=== PATIENT | female | born 1965 | race African-American/Black ===

== ENCOUNTER 2016-05-10 17:40 | Emergency (ER) | payer SELFPAY ==
--- NOTE | 2016-05-10 18:21 | ER Document Report ---
ED Medical Screen (RME) - General Stated Complaint: POSSIBLE HEART PALPITATIONS Time seen by provider: 18:18 Mode of Arrival: Ambulatory Information source: Patient Notes: 51-year-old female presents to ED for possible palpitations. She states she was having chest tightness and pain for greater than 3 weeks worsening today. States it is causing shortness of breath dizziness and hot flashes. She has had a uterine ablation she is also on tamoxifen for breast cancer. Increased fatigue for the last 4 days she's been sleeping more. I have greeted and performed a rapid initial assessment of this patient. A comprehensive ED assessment and evaluation of the patient, analysis of test results and completion of medical decision making process will be conducted by an additional ED providers. TRAVEL OUTSIDE OF THE [place] IN LAST 30 DAYS: No - Related Data Allergies/Adverse Reactions: No Known Allergies Allergy (Verified 11/23/15 15:42) Past Medical History - Past Medical History Cardiac Medical History: Reports: Hx Hypertension Malignancy Medical History: Reports: Hx Breast Cancer - 2 years ago Past Surgical History: Reports: Hx Breast Surgery - LT lumpectomy, Hx Gynecologic Surgery - ablasion - Immunizations Hx Diphtheria, Pertussis, Tetanus Vaccination: Yes
[2016-05-10] MEDS ORDERED: ASPIRIN 81 MG TABLET, CHEWABLE PO ONE (18:22)
[2016-05-10 19:16] LABS: ABSOLUTE BASOPHILS # (AUTO) 0.1 10^3/uL (0.0-0.2); ABSOLUTE EOSINOPHILS # (AUTO) 0.4 10^3/uL (0.0-0.6); ABSOLUTE LYMPHOCYTES (AUTO) 2.3 10^3/uL (0.5-4.7); ABSOLUTE MONOCYTES (AUTO) 0.3 10^3/uL (0.1-1.4); ABSOLUTE NEUT (AUTO) 4.3 10^3/uL (1.7-8.2); BASOPHILS % (AUTO) 0.7 % (0-2); EOSINOPHILS % (AUTO) 5.2 % (0-6); HEMATOCRIT 40.3 % (36.0-47.0); HEMOGLOBIN 13.6 g/dL (12.0-15.5); HGB HCT DIFFERENCE 0.5; LYMPHOCYTES % (AUTO) 31.6 % (13-45); MEAN CORPUSCULAR HEMOGLOBIN 28.6 pg (27.0-33.4); MEAN CORPUSCULAR HGB CONC 33.8 g/dL (32.0-36.0); MEAN CORPUSCULAR VOLUME 85 fl (80-97); MONOCYTES % (AUTO) 4.7 % (3-13); RED BLOOD COUNT 4.77 10^6/uL (3.72-5.28); SEGMENTED NEUTROPHILS % (AUTO) 57.8 % (42-78); WHITE BLOOD COUNT 7.4 10^3/uL (4.0-10.5)
[2016-05-10 19:23] LABS: PARTIAL THROMBOPLASTIN TIME 28.2 SEC (23.5-35.8); PROTHROMBIN TIME 13.3 SEC (11.4-15.4)
[2016-05-10 19:50] LABS: CREATINE KINASE MB 0.83 ng/mL (<4.55)
[2016-05-10 19:51] LABS: TROPONIN I < 0.012 ng/mL
[2016-05-10 19:56] LABS: ALANINE AMINOTRANSFERASE 37 U/L (9-52); ALBUMIN 4.7 g/dL (3.5-5.0); ALKALINE PHOSPHATASE 68 U/L (38-126); ANION GAP 10 (5-19); ASPARTATE AMINO TRANSFERASE 28 U/L (14-36); BILIRUBIN,TOTAL 0.8 mg/dL (0.2-1.3); BLOOD UREA NITROGEN 12 mg/dL (7-20); CALCIUM 10.5 mg/dL (8.4-10.2); CARBON DIOXIDE 26 mmol/L (22-30); CHLORIDE 106 mmol/L (98-107); CREATINE KINASE 181 U/L (30-135); CREATININE RESULT 1.06 mg/dL (0.52-1.25); GLUCOSE 75 mg/dL (75-110); POTASSIUM 4.4 mmol/L (3.6-5.0); SODIUM 142.4 mmol/L (137-145); TOTAL PROTEIN 8.2 g/dL (6.3-8.2)
--- NOTE | 2016-05-10 23:27 | ER Document Report ---
ED General - General Chief Complaint: Palpitations Stated Complaint: POSSIBLE HEART PALPITATIONS Mode of Arrival: Ambulatory Notes: Patient is a 51-year-old female with past history of breast cancer in remission as well as hypertension who presents intermittent palpitations and hot flashes for the last 2-3 weeks. She also notes that she has had an intermittent, sharp , stabbing pain in her left chest. Nothing improves or worsens her symptoms. She has not yet seen her primary care doctor regarding today's concerns. She denies any history of DVT or pulmonary embolus. Denies any associated radiation of the pain, shortness of breath, nausea, vomiting or hemoptysis. Does not use estrogen. No recent medication changes. TRAVEL OUTSIDE OF THE [place] IN LAST 30 DAYS: No - Related Data Allergies/Adverse Reactions: No Known Allergies Allergy (Verified 11/23/15 15:42) Past Medical History - General Information source: Patient - Social History Smoking Status: Former Smoker Chew tobacco use (# tins/day): No Frequency of alcohol use: None Drug Abuse: None Lives with: Alone Family History: Reviewed & Not Pertinent. denies: CAD, Hypertension Patient has suicidal ideation: No - Past Medical History Cardiac Medical History: Reports: Hx Hypertension Renal/ Medical History: Denies: Hx Peritoneal Dialysis Malignancy Medical History: Reports: Hx Breast Cancer - 2 years ago Past Surgical History: Reports: Hx Breast Surgery - LT lumpectomy, Hx Gynecologic Surgery - ablasion - Immunizations Hx Diphtheria, Pertussis, Tetanus Vaccination: Yes Review of Systems - Review of Systems Notes: Constitutional: Negative for fever. HENT: Negative for sore throat. Eyes: Negative for visual changes. Cardiovascular: Positive for chest pain and palpitations Respiratory: Negative for shortness of breath. Gastrointestinal: Negative for abdominal pain, vomiting or diarrhea. Genitourinary: Negative for dysuria. Musculoskeletal: Negative for back pain. Skin: Negative for rash. Neurological: Negative for headaches, weakness or numbness. 10 point ROS negative except as marked above and in HPI. Physical Exam - Vital signs Vitals: Temp Pulse Resp BP Pulse Ox 97.8 F 69 18 150/102 H 100 05/10/16 17:54 05/10/16 17:54 05/10/16 17:54 05/10/16 17:54 05/10/16 17:54 Interpretation: Hypertensive Notes: PHYSICAL EXAMINATION: GENERAL: Well-appearing, well-nourished and in no acute distress. HEAD: Atraumatic, normocephalic. EYES: Pupils equal round and reactive to light, extraocular movements intact, sclera anicteric, conjunctiva are normal. ENT: nares patent, oropharynx clear without exudates. Moist mucous membranes. NECK: Normal range of motion, supple without lymphadenopathy LUNGS: Breath sounds clear to auscultation bilaterally and equal. No wheezes rales or rhonchi. HEART: Regular rate and rhythm without murmurs ABDOMEN: Soft, nontender, normoactive bowel sounds. No guarding, no rebound. No masses appreciated. EXTREMITIES: Normal range of motion, no pitting or edema. No cyanosis. NEUROLOGICAL: No focal neurological deficits. Moves all extremities spontaneously and on command. PSYCH: Normal mood, normal affect. SKIN: Warm, Dry, normal turgor, no rashes or lesions noted. Course - Re-evaluation Re-evalutation: 05/10/16 23:26 Patient presents with palpitations but is in no acute distress. Vitals within normal limits at time of arrival. EKG unremarkable with a normal sinus rhythm. Laboratories are unremarkable. Patient denies any chest pain at this time but did complain earlier. Patient has had 2 troponins which both are negative. She denies shortness of breath, or vomiting. At this time based on exam and history do not suspect a new onset arrhythmia, ACS, acute pulmonary embolus, aortic dissection. Patient encouraged to follow-up with their primary care physician as well as cardiology and a referral has been provided. At this time will discharge with return precautions and follow-up recommendations. Verbal discharge instructions given a the bedside and opportunity for questions given. Medication warnings reviewed. Patient is in agreement with this plan and has verbalized understanding of return precautions and the need for primary care follow-up in the next 24-72 hours. - Vital Signs Vital signs: Temp Pulse Resp BP Pulse Ox 98.7 F 69 19 157/110 H 95 05/10/16 23:49 05/10/16 17:54 05/10/16 23:36 05/10/16 23:36 05/10/16 23:36 - Laboratory Result Diagrams: 05/10/16 19:05 05/10/16 19:05 Laboratory results interpreted by me: 05/10/16 19:05 Est GFR (Non-Af Amer) 55 L Calcium 10.5 H Creatine Kinase 181 H - Diagnostic Test Radiology reviewed: Image reviewed, Reports reviewed Radiology results interpreted by me: 05/10/16 23:40 Chest x-ray: No acute infiltrate or pneumothorax - EKG Interpretation by Me Additional EKG results interpreted by me: 05/10/16 23:41 Normal sinus rhythm. No ST elevations or depressions. QTC is 462. Rate is 65 Discharge - Discharge Clinical Impression: Palpitations Chest pain Qualifiers: Chest pain type: unspecified Qualified Code(s): R07.9 - Chest pain, unspecified Condition: Good Disposition: HOME, SELF-CARE Additional Instructions: Please follow-up closely with cardiology regarding your palpitations. Return if you pass out, have shortness of breath, persistent vomiting, develop significant chest pain, or have any other symptoms that are concerning to you. You were seen today for chest pain. The exact cause of your pain is unclear. However, based on your cardiac enzyme testing, chest x-ray, and EKG it does not appear that it is from an immediately life-threatening cause at this time. Although your testing here is normal is critical that you follow-up with your primary care physician for continued evaluation of this chest pain and possible stress testing. I recommended you see your physician within the next 24-48 hours to be evaluated for consideration of a stress test. Please return to emergency department immediately if you have worsening of your chest pain, shortness of breath, vomiting, become unable to exert yourself due to pain or difficulty breathing, you pass out, or have any pain that radiates into your arms, jaw, or back. Please also return if you have any additional symptoms that are concerning to you. Forms: Return to Work Referrals: JUAN HOUSER MD [ACTIVE STAFF] - Follow up in 3-5 days
[2016-05-10 23:39] VITALS: BP 157/110
--- NOTE | 2016-05-11 11:15 | EKG REPORT ---
SEVERITY:- ABNORMAL ECG - SINUS RHYTHM LEFT VENTRICULAR HYPERTROPHY : Confirmed by: Annamaria Salinas 11-May-2016 11:14:31
== END 2016-05-10 23:49 | disposition home or self-care (01) ==
LOC: ER 17:40
DX: R00.2 Palpitations (principal); I10 Essential (primary) hypertension; R07.9 Chest pain, unspecified; Z87.891 Personal history of nicotine dependence; Z85.3 Personal history of malignant neoplasm of breast
CPT/HCPCS: 36415; 71020; 80053; 82550; 82553; 83735; 83880; 84443; 84484; 85025; 85610; 85730; 93005; 93010; 99285

== ENCOUNTER 2017-01-29 15:40 | Emergency (ER) | payer SELFPAY ==
--- NOTE | 2017-01-29 18:33 | ER Document Report ---
ED Medical Screen (RME) - General Chief Complaint: Nausea/Vomiting/Diarrhea Stated Complaint: STOMACH ACHES Time Seen by Provider: 01/29/17 18:32 Notes: Patient has had several weeks of generalized weakness chest pain TRAVEL OUTSIDE OF THE [place] IN LAST 30 DAYS: No - Related Data Allergies/Adverse Reactions: No Known Allergies Allergy (Verified 01/29/17 15:41) Home Medications: Current Home Medications Amlodipine Besylate [Norvasc 10 mg Tablet] 1 tab PO DAILY 01/29/17 [History] Tamoxifen Citrate 20 mg PO DAILY 01/29/17 [History] Past Medical History - Social History Frequency of alcohol use: None Drug Abuse: None - Past Medical History Cardiac Medical History: Reports: Hx Hypertension Renal/ Medical History: Denies: Hx Peritoneal Dialysis Malignancy Medical History: Reports: Hx Breast Cancer - 2 years ago Past Surgical History: Reports: Hx Breast Surgery - LT lumpectomy, Hx Gynecologic Surgery - ablasion - Immunizations Hx Diphtheria, Pertussis, Tetanus Vaccination: Yes Physical Exam - Vital signs Vitals: Temp Pulse Resp BP Pulse Ox 98.0 F 62 18 158/111 H 99 01/29/17 16:04 01/29/17 16:04 01/29/17 16:04 01/29/17 16:04 01/29/17 16:04 Course - Vital Signs Vital signs: Temp Pulse Resp BP Pulse Ox 98.0 F 62 18 158/111 H 99 01/29/17 16:04 01/29/17 16:04 01/29/17 18:25 01/29/17 16:04 01/29/17 16:04
[2017-01-29 19:39] LABS: ABSOLUTE BASOPHILS # (AUTO) 0.1 10^3/uL (0.0-0.2); ABSOLUTE EOSINOPHILS # (AUTO) 0.4 10^3/uL (0.0-0.6); ABSOLUTE LYMPHOCYTES (AUTO) 2.1 10^3/uL (0.5-4.7); ABSOLUTE MONOCYTES (AUTO) 0.4 10^3/uL (0.1-1.4); ABSOLUTE NEUT (AUTO) 2.4 10^3/uL (1.7-8.2); BASOPHILS % (AUTO) 1.5 % (0-2); HEMATOCRIT 40.8 % (36.0-47.0); HEMOGLOBIN 13.9 g/dL (12.0-15.5); LYMPHOCYTES % (AUTO) 38.9 % (13-45); MEAN CORPUSCULAR HEMOGLOBIN 28.7 pg (27.0-33.4); MEAN CORPUSCULAR HGB CONC 33.9 g/dL (32.0-36.0); MEAN CORPUSCULAR VOLUME 85 fl (80-97); MONOCYTES % (AUTO) 8.1 % (3-13); PLATELET COUNT 213 10^3/uL (150-450); RED BLOOD COUNT 4.82 10^6/uL (3.72-5.28); RED CELL DISTRIBUTION WIDTH 14.3 % (11.5-14.0); SEGMENTED NEUTROPHILS % (AUTO) 43.5 % (42-78); TOTAL CELLS COUNTED % (AUTO) 100 %; WHITE BLOOD COUNT 5.5 10^3/uL (4.0-10.5)
[2017-01-29 20:08] LABS: ALANINE AMINOTRANSFERASE 33 U/L (9-52); ALBUMIN 4.3 g/dL (3.5-5.0); ALKALINE PHOSPHATASE 66 U/L (38-126); ANION GAP 12 (5-19); ASPARTATE AMINO TRANSFERASE 31 U/L (14-36); BILIRUBIN,DIRECT 0.3 mg/dL (0.0-0.4); BILIRUBIN,TOTAL 0.5 mg/dL (0.2-1.3); BLOOD UREA NITROGEN 11 mg/dL (7-20); CALCIUM 9.7 mg/dL (8.4-10.2); CARBON DIOXIDE 25 mmol/L (22-30); CHLORIDE 108 mmol/L (98-107); GLUCOSE 78 mg/dL (75-110); POTASSIUM 4.5 mmol/L (3.6-5.0); SODIUM 144.5 mmol/L (137-145); TOTAL PROTEIN 7.2 g/dL (6.3-8.2)
[2017-01-29 20:30] LABS: APPEARANCE,URINE SLIGHTLY-CLOUDY; BILIRUBIN,URINE NEGATIVE (NEGATIVE); COLOR,URINE YELLOW; GLUCOSE, URINE NEGATIVE (NEGATIVE); KETONES,URINE NEGATIVE (NEGATIVE); LEUKOCYTE ESTERASE,URINE NEGATIVE (NEGATIVE); NITRITE,URINE NEGATIVE (NEGATIVE); PROTEIN,URINE 30 mg/dL (NEGATIVE); URINE SPECIFIC GRAVITY 1.013; UROBILINOGEN,URINE NEGATIVE mg/dL (<2.0)
--- NOTE | 2017-01-29 20:38 | EKG REPORT ---
SEVERITY:- BORDERLINE ECG - SINUS RHYTHM LVH BY VOLTAGE : Confirmed by: Annamaria Salinas 29-Jan-2017 20:37:46
[2017-01-29 20:39] LABS: ADD MANUAL MICROSCOPIC YES; BACTERIA,URINE 2+ /HPF
[2017-01-29] MEDS ORDERED: METOPROLOL TARTRATE PF/INJ 5 MG/5 ML SDV IV ONE (20:44)
[2017-01-29] MEDS ORDERED: ASPIRIN 81 MG TABLET, CHEWABLE PO ONE (20:45)
--- NOTE | 2017-01-29 20:51 | ER Document Report ---
ED General - General Chief Complaint: Nausea/Vomiting/Diarrhea Stated Complaint: STOMACH ACHES Time Seen by Provider: 01/29/17 18:32 Mode of Arrival: Ambulatory Information source: Patient TRAVEL OUTSIDE OF THE [place] IN LAST 30 DAYS: No - HPI Patient complains to provider of: Feeling queasy for 1 week, dizziness and chest pain that started in the ED Associated symptoms: Chest pain, Nausea Notes: Is that for approximately 1 week she has felt very queasy. She has had nausea no vomiting or diarrhea. She has had decreased appetite. 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 She states while in the emergency department she developed tightness in her left breast area and some dizziness. - Related Data Allergies/Adverse Reactions: No Known Allergies Allergy (Verified 01/29/17 15:41) Home Medications: Current Home Medications Amlodipine Besylate [Norvasc 10 mg Tablet] 1 tab PO DAILY 01/29/17 [History] Tamoxifen Citrate 20 mg PO DAILY 01/29/17 [History] Past Medical History - General Information source: Patient - Social History Smoking Status: Former Smoker Cigarette use (# per day): No Chew tobacco use (# tins/day): No Smoking Education Provided: No Frequency of alcohol use: None - She has not drank or smoked in 15 years Drug Abuse: None Lives with: Alone, Other - States both of her daughters live in the area they are in their 20s. She states she also has 3 grandchildren Family History: Reviewed & Not Pertinent, CAD, Hypertension, Thyroid Disfunction Patient has suicidal ideation: No Patient has homicidal ideation: No - Past Medical History Cardiac Medical History: Reports: Hx Hypertension Pulmonary Medical History: Reports: None EENT Medical History: Reports: None Neurological Medical History: Reports: None Endocrine Medical History: Reports: None Renal/ Medical History: Reports: None, Other - Uterine ablation 2008. Denies : Hx Peritoneal Dialysis Malignancy Medical History: Reports: Hx Breast Cancer - 2 years ago. She had breast cancer in 2013 that relapsed in the same year. Other: She is currently on tamoxifen. She has had radiation in the lumpectomy for breast cancer GI Medical History: Reports: None Musculoskeltal Medical History: Reports None Skin Medical History: Reports None Psychiatric Medical History: Reports: None Traumatic Medical History: Reports: None Infectious Medical History: Reports: None Past Surgical History: Reports: Hx Breast Surgery - LT lumpectomy, Hx Gynecologic Surgery - ablasion - Immunizations Hx Diphtheria, Pertussis, Tetanus Vaccination: Yes History of Influenza Vaccine for 11/2016 - 04/2017 Season: No Review of Systems - Review of Systems Constitutional: Diaphoresis, Malaise. denies: Weight gain, Weight loss, Recent illness EENT: Other - States that she is seeing intermittent floaters Cardiovascular: Chest pain, Dizziness, Lightheaded Respiratory: No symptoms reported Gastrointestinal: Nausea Genitourinary: No symptoms reported Female Genitourinary: No symptoms reported Neurological/Psychological: No symptoms reported Physical Exam - Vital signs Vitals: Temp Pulse Resp BP Pulse Ox 98.0 F 62 18 158/111 H 99 01/29/17 16:04 01/29/17 16:04 01/29/17 16:04 01/29/17 16:04 01/29/17 16:04 Interpretation: Hypertensive - Notes Notes: PHYSICAL EXAMINATION: GENERAL: Well-appearing, well-nourished and in no acute distress. HEAD: Atraumatic, normocephalic. EYES: Pupils equal round and reactive to light, extraocular movements intact, conjunctiva are normal. ENT: Nares patent, oropharynx clear without exudates. Moist mucous membranes. NECK: Normal range of motion, supple without lymphadenopathy LUNGS: Breath sounds clear to auscultation bilaterally and equal. No wheezes rales or rhonchi. HEART: Regular rate and rhythm without murmurs ABDOMEN: Soft, nontender, nondistended abdomen. No guarding, no rebound. No masses appreciated. Female : deferred Musculoskeletal: Normal range of motion, no pitting or edema. No cyanosis. NEUROLOGICAL: Cranial nerves grossly intact. Normal speech, normal gait. Normal sensory, motor exams PSYCH: Normal mood, normal affect. SKIN: Warm, Dry, normal turgor, no rashes or lesions noted. Course - Vital Signs Vital signs: Temp Pulse Resp BP Pulse Ox 98.0 F 62 16 145/95 H 97 01/29/17 16:04 01/29/17 16:04 01/29/17 23:16 01/29/17 23:16 01/29/17 23:16 - Laboratory Result Diagrams: 01/29/17 19:15 01/29/17 19:15 Laboratory results interpreted by me: 01/29/17 01/29/17 01/29/17 19:15 19:15 19:15 RDW 14.3 H Eosinophils % 8.0 H Chloride 108 H Est GFR (Non-Af Amer) 56 L Urine Protein 30 H Discharge - Discharge Clinical Impression: Chest pain Condition: Stable Disposition: ADMITTED OBSERVATION Admitting Provider: Hospitalist Unit Admitted: Telemetry Referrals: [facility] [Primary Care Provider] - Follow up as needed
[2017-01-29] MEDS: NITROGLYCERIN 0.4 MG/TAB 25 TAB/BOTTLE SL PRN ×2 (20:53→21:53)
--- NOTE | 2017-01-29 21:24 | RADIOLOGY REPORT (SQ) ---
EXAM DESCRIPTION: CHEST SINGLE VIEW COMPLETED DATE/TIME: 01/29/2017 9:09 pm REASON FOR STUDY: chest pain COMPARISON: April 2016 EXAM PARAMETERS: NUMBER OF VIEWS: One view. TECHNIQUE: Single frontal radiographic view of the chest acquired. RADIATION DOSE: NA LIMITATIONS: None. FINDINGS: LUNGS AND PLEURA: No opacities, masses or pneumothorax. No pleural effusion. MEDIASTINUM AND HILAR STRUCTURES: No masses. Contour normal. HEART AND VASCULAR STRUCTURES: Heart normal in size. Normal vasculature. BONES: No acute findings. HARDWARE: None in the chest. OTHER: No other significant finding. IMPRESSION: NO ACUTE RADIOGRAPHIC FINDING IN THE CHEST. TECHNICAL DOCUMENTATION: JOB ID: [id number] [employer]- All Rights Reserved
[2017-01-29] MEDS ORDERED: ACETAMINOPHEN 325 MG TABLET PO ONE (21:45)
--- NOTE | 2017-01-29 21:46 | EKG REPORT ---
SEVERITY:- ABNORMAL ECG - SINUS RHYTHM LEFT VENTRICULAR HYPERTROPHY : Confirmed by: Annamaria Salinas 29-Jan-2017 21:45:51
[2017-01-29] MEDS ORDERED: NITROGLYCERIN 2% OINTMENT 1 GM PACKET TP ONE (23:08)
[2017-01-29] MEDS ORDERED: NITROGLYCERIN 0.4 MG/TAB 25 TAB/BOTTLE SL PRN (23:15)
[2017-01-29] MEDS ORDERED: KETOROLAC TROMETHAMINE INJ/PF 30 MG/1 ML SDV IV ONE (23:32)
[2017-01-29] MEDS ORDERED: LABETALOL HCL INJ 20 MG/4 ML DISP.SYRIN IV ONE (23:33)
[2017-01-30] MEDS ORDERED: ONDANSETRON 4 MG TAB.RAPDIS PO PRN (00:46)
[2017-01-30] MEDS ORDERED: MAG HYDROX/AL HYDROX/SIMETH SUSP 30 ML UDCUP PO PRN (00:46)
[2017-01-30] MEDS ORDERED: DIAZEPAM 5 MG TABLET PO PRN (00:46)
[2017-01-30] MEDS ORDERED: NITROGLYCERIN 0.4 MG/TAB 25 TAB/BOTTLE SL PRN (00:46)
[2017-01-30] MEDS ORDERED: RINGERS SOLUTION,LACTATED 1,000 ML IV PRN (00:46)
[2017-01-30] MEDS ORDERED: MORPHINE SULFATE 10 MG/ML INJ ONE (01:42)
[2017-01-30] MEDS: MORPHINE SULFATE 10 MG/ML INJ IV PRN ×2 (01:48→08:12)
--- NOTE | 2017-01-30 02:42 | PDOC H&P ---
History of Present Illness Admission Date/PCP: 01/30/17 00:11 [facility] History of Present Illness: JESSY LOPEZ is a 52 year old female with past medical history of hypertension and breast cancer who presents to the emergency department with complaints of nausea and sweats. Patient reports that she has been having nausea without vomiting and sweats and chills as well as a headache in the center of her forehead. She reports that she has been taking Benadryl for this. Thinking it was her sinuses. Patient reports then that she developed today some chest pain that was tight substernal radiating to the right lasting less than 1 minute. She reports now this pain seems to move all over. She reports is slightly improved with nitro paste. Denies any shortness of breath. She does admit to a cough that is nonproductive and sinus congestion. She is referred to hospital service for evaluation of her chest pain. Past Medical History Cardiac Medical History: Reports: Hypertension Pulmonary Medical History: Reports: None EENT Medical History: Reports: None Neurological Medical History: Reports: None Endocrine Medical History: Reports: None Renal/ Medical History: Reports: None, Other - Uterine ablation 2009 Malignancy Medical History: Reports: Breast Cancer - 2 years ago. She had breast cancer in 2014 that relapsed in the same year. GI Medical History: Reports: None Musculoskeltal Medical History: Reports: None Skin Medical History: Reports: None Psychiatric Medical History: Reports: None Traumatic Medical History: Reports: None Infectious Medical History: Reports: None Past Surgical History Past Surgical History: Reports: Tubal Ligation, Other - Lumpectomy, D&C, and endometrial ablation Social History Lives with: Alone, Other - States both of her daughters live in the area they are in their 20s. She states she also has 3 grandchildren Smoking Status: Former Smoker Frequency of Alcohol Use: None Hx Recreational Drug Use: No Hx Prescription Drug Abuse: No - Advance Directive Resuscitation Status: Full Code Surrogate healthcare decision maker:: Anahi Hilario, daughter Family History Family History: CAD, Hypertension, Thyroid Disfunction Parental Family History Reviewed: Yes Children Family History Reviewed: Yes Sibling(s) Family History Reviewed.: Yes Medication/Allergy Home Medications: Amlodipine Besylate [Norvasc 10 mg Tablet] 1 tab PO DAILY 01/29/17 Tamoxifen Citrate 20 mg PO DAILY 01/29/17 Allergies/Adverse Reactions: No Known Allergies Allergy (Verified 01/29/17 15:41) Review of Systems Constitutional: PRESENT: chills, fatigue, headache(s). ABSENT: fever(s), weight gain, weight loss Eyes: ABSENT: visual disturbances Ears: ABSENT: hearing changes Nose, Mouth, and Throat: PRESENT: headache(s) Cardiovascular: PRESENT: chest pain. ABSENT: dyspnea on exertion, edema, orthropnea, palpitations Respiratory: PRESENT: cough. ABSENT: dyspnea, hemoptysis, sputum Gastrointestinal: ABSENT: abdominal pain, constipation, diarrhea, hematemesis, hematochezia, nausea, vomiting Genitourinary: ABSENT: dysuria, hematuria Musculoskeletal: ABSENT: joint swelling Integumentary: ABSENT: rash, wounds Neurological: ABSENT: abnormal gait, abnormal speech, confusion, dizziness, focal weakness, syncope Psychiatric: ABSENT: anxiety, depression, homidical ideation, suicidal ideation Endocrine: ABSENT: cold intolerance, heat intolerance, polydipsia, polyuria Hematologic/Lymphatic: ABSENT: easy bleeding, easy bruising Physical Exam Vital Signs: Temp Pulse Resp BP Pulse Ox 98.0 F 62 6 L 124/92 H 97 01/29/17 16:04 01/29/17 16:04 01/30/17 00:01 01/30/17 00:01 01/30/17 00:01 General appearance: PRESENT: no acute distress, well-developed, well-nourished Head exam: PRESENT: atraumatic, normocephalic Eye exam: PRESENT: conjunctiva pink, EOMI, PERRLA. ABSENT: scleral icterus Ear exam: PRESENT: normal external ear exam Mouth exam: PRESENT: moist, tongue midline Neck exam: ABSENT: carotid bruit, JVD, lymphadenopathy, thyromegaly Respiratory exam: PRESENT: clear to auscultation gerardo. ABSENT: rales, rhonchi, wheezes Cardiovascular exam: PRESENT: RRR. ABSENT: diastolic murmur, rubs, systolic murmur Pulses: PRESENT: normal dorsalis pedis pul Vascular exam: PRESENT: normal capillary refill GI/Abdominal exam: PRESENT: normal bowel sounds, soft. ABSENT: distended, guarding, mass, organolmegaly, rebound, tenderness Rectal exam: PRESENT: deferred Extremities exam: PRESENT: full ROM. ABSENT: calf tenderness, clubbing, pedal edema Neurological exam: PRESENT: alert, awake, oriented to person, oriented to place , oriented to time, oriented to situation, CN II-XII grossly intact. ABSENT: motor sensory deficit Psychiatric exam: PRESENT: appropriate affect, normal mood. ABSENT: homicidal ideation, suicidal ideation Skin exam: PRESENT: dry, intact, warm. ABSENT: cyanosis, rash Results Laboratory Results: 01/29/17 01/29/17 01/29/17 19:15 19:15 19:15 WBC 5.5 Hgb 13.9 Hct 40.8 Creatinine 1.04 Troponin I 0.054 Urine Protein Urine WBC 01/29/17 01/29/17 19:15 22:00 WBC Hgb Hct Creatinine Troponin I 0.068 Urine Protein 30 H Urine WBC 1-5 Impressions: Chest X-Ray 01/29/17 20:54 IMPRESSION: NO ACUTE RADIOGRAPHIC FINDING IN THE CHEST. Assessment & Plan - Diagnosis (1) Chest pain Qualifiers: Chest pain type: unspecified Qualified Code(s): R07.9 - Chest pain, unspecified Is this a current diagnosis for this admission?: Yes Plan: Place patient on telemetry observation. Monitor for arrhythmia or ST segment changes. Initiate patient on metoprolol, Lipitor, oxygen, nitroglycerin, morphine, and aspirin. Serial cardiac enzymes every 6 hours. Testing lipid panel in the morning. (2) HTN (hypertension) Qualifiers: Hypertension type: essential hypertension Qualified Code(s): I10 - Essential (primary) hypertension Is this a current diagnosis for this admission?: Yes Plan: Continue home Norvasc (3) Obesity (BMI 30.0-34.9) Is this a current diagnosis for this admission?: Yes Plan: Patient is advised to engage actively in weight loss and increase activity as tolerated. (4) Breast cancer Qualifiers: Breast location: unspecified site of breast Estrogen receptor status: unspecified Patient sex: female Laterality: unspecified laterality Qualified Code(s): C50.919 - Malignant neoplasm of unspecified site of unspecified female breast Is this a current diagnosis for this admission?: Yes Plan: Continue tamoxifen - Time Time Spent: 30 to 50 Minutes Medications reviewed and adjusted accordingly: Yes Anticipated discharge: Home Within: within 24 hours - Inpatient Certification Based on my medical assessment, after consideration of the patient's comorbidities, presenting symptoms, or acuity I expect that the services needed warrant INPATIENT care.: No I certify that my determination is in accordance with my understanding of Medicare's requirements for reasonable and necessary INPATIENT services [42 CFR 412.3e].: No Post Hospital Care: D/C Watch Inspector Final Movement Documentation
[2017-01-30 04:23] LABS: CREATINE KINASE MB 2.35 ng/mL (<4.55)
[2017-01-30 04:36] LABS: TROPONIN I 0.055 ng/mL
[2017-01-30] MEDS ORDERED: FAMOTIDINE 20 MG TABLET PO SCH (10:00)
[2017-01-30] MEDS ORDERED: TAMOXIFEN CITRATE 10 MG TABLET PO SCH (10:00)
[2017-01-30] MEDS ORDERED: ASPIRIN 325 MG TABLET, ENT COATED PO SCH (10:00)
[2017-01-30] MEDS ORDERED: LOSARTAN POTASSIUM 25 MG TABLET PO SCH (10:00)
[2017-01-30] MEDS ORDERED: METOPROLOL SUCCINATE 25 MG TAB.SR.24H PO SCH (10:00)
[2017-01-30] MEDS ORDERED: AMLODIPINE BESYLATE 10 MG TABLET PO SCH (10:00)
[2017-01-30] MEDS ORDERED: (PENDING PHARMACY ID) (Tamoxifen Citrate [Tamoxifen Citrate] 20 MG) PO SCH (10:00)
[2017-01-30 11:19] LABS: CREATINE KINASE MB 1.9 ng/mL (<4.55); TROPONIN I 0.063 ng/mL
[2017-01-30 14:34] VITALS: BP 117/93
--- NOTE | 2017-01-30 16:46 | PDOC DISCHARGE SUMMARY ---
General - Admit/Disc Date/PCP Admission Date/Primary Care Provider: 01/30/17 00:[address] [facility] Discharge Date: 01/30/17 - Discharge Diagnosis (1) Chest pain Is this a current diagnosis for this admission?: Yes Summary: Chest pain is most likely secondary to esophageal spasm with gastroesophageal reflux disease. Negative cardiac enzymes. (2) HTN (hypertension) Is this a current diagnosis for this admission?: Yes (3) Breast cancer Is this a current diagnosis for this admission?: Yes - Additional Information Resuscitation Status: Full Code Discharge Diet: Regular, Other (Comments) - avoid caffeine Discharge Activity: Activity As Tolerated Home Medications: Amlodipine Besylate [Norvasc 10 mg Tablet] 1 tab PO QHS 01/29/17 Tamoxifen Citrate 20 mg PO QHS 01/29/17 Omeprazole Magnesium [Prilosec Otc] 20 mg PO DAILY #30 tablet. 01/30/17 History of Present Illness History of Present Illness: JESSY LOPEZ is a 52 year old female who has a history of breast cancer who presented with atypical chest pain. She reported the chest pain was substernal and occurred after eating. She does have associated sour brash as well as acid reflux symptoms. Patient reported the pain radiated to her back. The patient had improvement with antacid. Patient is being admitted for monitoring. Hospital Course Hospital Course: 52-year-old female who presented with some atypical chest pain. Patient was monitored on telemetry and had negative cardiac enzymes. Given the nature of the pain and the fact that she has acid reflux symptoms along with symptoms that are suggestive of esophageal spasm we will not pursue any further cardiac workup at this time. She is instructed to take Prilosec daily. If she continues to have symptoms that she may benefit from an EGD. The patient is to continue with her tamoxifen. Physical Exam Vital Signs: Temp Pulse Resp BP Pulse Ox 97.4 F 62 17 117/93 H 94 01/30/17 14:30 01/29/17 16:04 01/30/17 14:30 01/30/17 14:30 01/30/17 14:30 General appearance: PRESENT: no acute distress Eye exam: PRESENT: conjunctiva pink. ABSENT: scleral icterus Mouth exam: PRESENT: moist, tongue midline Neck exam: ABSENT: JVD Respiratory exam: PRESENT: clear to auscultation gerardo. ABSENT: rales, rhonchi, wheezes Cardiovascular exam: PRESENT: RRR. ABSENT: diastolic murmur, rubs, systolic murmur GI/Abdominal exam: PRESENT: normal bowel sounds, soft. ABSENT: distended, guarding, mass, organolmegaly, rebound, tenderness Extremities exam: ABSENT: calf tenderness, clubbing, pedal edema Neurological exam: PRESENT: alert, awake, oriented to person, oriented to place , oriented to time, oriented to situation, CN II-XII grossly intact. ABSENT: motor sensory deficit Psychiatric exam: PRESENT: appropriate affect Skin exam: PRESENT: dry, intact, warm. ABSENT: cyanosis, rash Results Laboratory Results: 01/30/17 01/30/17 03:45 10:20 CK-MB (CK-2) 2.35 1.90 Troponin I 0.055 0.063 Impressions: Chest X-Ray 01/29/17 20:54 IMPRESSION: NO ACUTE RADIOGRAPHIC FINDING IN THE CHEST. Qualifiers PATEINT BEING DISCHARGED WITH ANY OF THE FOLLOWING DIAGNOSIS?: No Plan Discharge Plan: Follow-up with primary care in 2 weeks. Time Spent: Less than 30 Minutes
[2017-01-30] MEDS ORDERED: ATORVASTATIN CALCIUM 40 MG TABLET PO SCH (22:00)
== END 2017-01-30 14:35 | disposition home or self-care (01) ==
LOC: ER 15:40 → EH 01-30 00:11
PROVIDERS: ADMIT Family Medicine; ATTEND Family Medicine
DX: R07.89 Other chest pain (principal); I10 Essential (primary) hypertension; C50.919 Malignant neoplasm of unspecified site of unspecified female breast; R11.0 Nausea; R68.83 Chills (without fever); R51 Headache; R09.81 Nasal congestion; R05 Cough; R53.83 Other fatigue; E66.9 Obesity, unspecified; R42 Dizziness and giddiness; R61 Generalized hyperhidrosis; H43.399 Other vitreous opacities, unspecified eye; R53.1 Weakness; Z68.32 Body mass index [BMI] 32.0-32.9, adult; Z79.899 Other long term (current) drug therapy; Z98.890 Other specified postprocedural states; Z98.51 Tubal ligation status; Z82.49 Family history of ischemic heart disease and other diseases of the circulatory system; Z87.891 Personal history of nicotine dependence; Z92.3 Personal history of irradiation
CPT/HCPCS: 93005; 99285; 36415 ×2; 82553; 85025; 80053; 81001; 84484 ×2; 71010; 93010; G0378; S0119; J3490 ×3; J1885; J2270; J7120

== ENCOUNTER → 2017-02-05 | Outpatient (CLI) | payer OTHER ==
[2017-02-05 08:30] LABS: ABSOLUTE BASOPHILS # (AUTO) 0.1 10^3/uL (0.0-0.2); ABSOLUTE EOSINOPHILS # (AUTO) 0.3 10^3/uL (0.0-0.6); ABSOLUTE LYMPHOCYTES (AUTO) 1.5 10^3/uL (0.5-4.7); ABSOLUTE MONOCYTES (AUTO) 0.4 10^3/uL (0.1-1.4); ABSOLUTE NEUT (AUTO) 2.7 10^3/uL (1.7-8.2); BASOPHILS % (AUTO) 1.1 % (0-2); EOSINOPHILS % (AUTO) 6.1 % (0-6); HEMATOCRIT 38.7 % (36.0-47.0); HEMOGLOBIN 13.4 g/dL (12.0-15.5); HGB HCT DIFFERENCE 1.5; LYMPHOCYTES % (AUTO) 29.6 % (13-45); MEAN CORPUSCULAR HEMOGLOBIN 28.8 pg (27.0-33.4); MEAN CORPUSCULAR HGB CONC 34.8 g/dL (32.0-36.0); MEAN CORPUSCULAR VOLUME 83 fl (80-97); RED BLOOD COUNT 4.67 10^6/uL (3.72-5.28); RED CELL DISTRIBUTION WIDTH 14.2 % (11.5-14.0); SEGMENTED NEUTROPHILS % (AUTO) 55.2 % (42-78)
[2017-02-05 08:55] LABS: ALANINE AMINOTRANSFERASE 36 U/L (9-52); ALBUMIN 3.7 g/dL (3.5-5.0); ALKALINE PHOSPHATASE 69 U/L (38-126); ANION GAP 13 (5-19); ASPARTATE AMINO TRANSFERASE 29 U/L (14-36); BILIRUBIN,DIRECT 0.3 mg/dL (0.0-0.4); BILIRUBIN,TOTAL 0.5 mg/dL (0.2-1.3); BLOOD UREA NITROGEN 13 mg/dL (7-20); CALCIUM 9.3 mg/dL (8.4-10.2); CARBON DIOXIDE 21 mmol/L (22-30); CHLORIDE 110 mmol/L (98-107); CREATININE RESULT 0.98 mg/dL (0.52-1.25); GLUCOSE 123 mg/dL (75-110); POTASSIUM 3.8 mmol/L (3.6-5.0); SODIUM 143.8 mmol/L (137-145); TOTAL PROTEIN 6.5 g/dL (6.3-8.2)
== END ==
LOC: CCC 07:41
DX: I10 Essential (primary) hypertension (principal); Z85.3 Personal history of malignant neoplasm of breast
CPT/HCPCS: 36415; 80053; 83036; 84443; 85025

== ENCOUNTER → 2017-02-10 | Outpatient (CLI) | payer OTHER ==
[2017-02-10 09:56] LABS: CHOLESTEROL 196.39 mg/dL (0-200); Direct HDL 59 mg/dL (>40); TRIGLYCERIDES 80 mg/dL (<150)
[2017-02-10 10:07] LABS: DIRECT LDL 120 mg/dL (<100)
== END ==
LOC: CCC 08:21
DX: I10 Essential (primary) hypertension (principal); Z85.3 Personal history of malignant neoplasm of breast
CPT/HCPCS: 36415; 80061

== ENCOUNTER → 2017-04-05 | Outpatient (CLI) | payer OTHER ==
--- NOTE | 2017-04-05 11:15 | RADIOLOGY REPORT (SQ) ---
EXAM DESCRIPTION: CHEST PA/LAT COMPLETED DATE/TIME: 04/05/2017 10:30 am REASON FOR STUDY: COUGH (R05), FEVER (R50.9), DYSPNEA (R06.00) COMPARISON: Two-view chest 05/10/2016, 02/17/2016 EXAM PARAMETERS: NUMBER OF VIEWS: two views TECHNIQUE: Digital Frontal and Lateral radiographic views of the chest acquired. RADIATION DOSE: NA LIMITATIONS: none FINDINGS: LUNGS AND PLEURA: No opacities, masses or pneumothorax. No pleural effusion. MEDIASTINUM AND HILAR STRUCTURES: No masses or contour abnormalities. HEART AND VASCULAR STRUCTURES: Heart normal size. No evidence for failure. BONES: No acute findings. HARDWARE: Surgical clips post left mastectomy with reconstruction OTHER: No other significant finding. IMPRESSION: NO SIGNIFICANT RADIOGRAPHIC FINDING IN THE CHEST. TECHNICAL DOCUMENTATION: JOB ID: [id number] [employer]- All Rights Reserved
== END ==
LOC: RAD 10:08
DX: R06.00 Dyspnea, unspecified (principal); R50.9 Fever, unspecified; R05 Cough
CPT/HCPCS: 71046

== ENCOUNTER 2017-06-22 06:25 | Emergency (ER) | payer SELFPAY ==
[2017-06-22] MEDS ORDERED: ASPIRIN 81 MG TABLET, CHEWABLE PO ONE (07:37)
--- NOTE | 2017-06-22 07:44 | EKG REPORT ---
SEVERITY:- OTHERWISE NORMAL ECG - SINUS RHYTHM : Confirmed by: Eric Grant MD 22-Jun-2017 07:44:00
[2017-06-22] MEDS ORDERED: ONDANSETRON HCL INJ/PF 4 MG/2 ML SDV IV ONE (07:47)
[2017-06-22] MEDS ORDERED: FENTANYL CITRATE INJ/PF 100 MCG/2 ML AMPUL IV ONE (07:47)
[2017-06-22] MEDS ORDERED: PREDNISONE 20 MG TABLET PO ONE (08:12)
--- NOTE | 2017-06-22 08:12 | ER Document Report ---
ED General Pain - General Chief Complaint: Chest Pain Stated Complaint: CHEST PAIN Time Seen by Provider: 06/22/17 07:13 Mode of Arrival: Ambulatory Information source: Patient Notes: History of present illness-52 years old female with a history of breast cancer, hypertension. On tamoxifen. Was having mid chest wall pain for the last 2 days , with difficulty in breathing running nose nasal congestion. Was seen by the primary care physician yesterday. Presents today with increased difficulty in breathing through the nose with condition of the nostrils. Ankle persistent pain over the sternocostal region of both sides of the chest. Denies any fever chills but had yellow productive cough. Some difficulty in breathing and wheezing on and off. No fever chills. Denies any headache focal weakness numbness tingling sensation. Denies any other constitutional symptoms REVIEW OF SYSTEMS: CONSTITUTIONAL : Denies fever, chills, or sweats. Denies recent illness. EENT: Denies eye, ear, throat, or mouth pain or symptoms. Denies nasal or sinus congestion or discharge. Denies throat, tongue, or mouth swelling or difficulty swallowing. CARDIOVASCULAR: Denies chest pain. Denies palpitations or racing or irregular heart beat. Denies ankle edema. RESPIRATORY: Denies cough, cold, or chest congestion. Denies shortness of breath, difficulty breathing, or wheezing. GASTROINTESTINAL: Denies abdominal pain or distention. Denies nausea, vomiting , or diarrhea. Denies blood in vomitus, stools, or per rectum. Denies black, tarry stools. Denies constipation. GENITOURINARY: Denies difficulty urinating, painful urination, burning, frequency, blood in urine, or discharge. FEMALE GENITOURINARY: Denies vaginal bleeding, heavy or abnormal periods, irregular periods. Denies vaginal discharge or odor. MUSCULOSKELETAL: Denies back or neck pain or stiffness. Denies joint pain or swelling. SKIN: Denies rash, lesions or sores. HEMATOLOGIC : Denies easy bruising or bleeding. LYMPHATIC: Denies swollen, enlarged glands. NEUROLOGICAL: Denies confusion or altered mental status. Denies passing out or loss of consciousness. Denies dizziness or lightheadedness. Denies headache. Denies weakness or paralysis or loss of use of either side. Denies problems with gait or speech. Denies sensory loss, numbness, or tingling. Denies seizures. PSYCHIATRIC: Denies anxiety or stress. Denies depression, suicidal ideation, or homicidal ideation. ALL OTHER SYSTEMS REVIEWED AND NEGATIVE. PHYSICAL EXAMINATION: GENERAL: Well-appearing, well-nourished and in no acute distress. HEAD: Atraumatic, normocephalic. EYES: Pupils equal round and reactive to light, extraocular movements intact, conjunctiva are normal. ENT: Nares patent, oropharynx clear without exudates. Moist mucous membranes. Nasal congestion noted NECK: Normal range of motion, supple without lymphadenopathy LUNGS: Breath sounds clear to auscultation bilaterally and equal. No wheezes rales or rhonchi. HEART: Regular rate and rhythm without murmurs Chest wall-sharp tenderness over the sternocostal region noted particularly on the left lower joints. - ABDOMEN: Soft, nontender, nondistended abdomen. No guarding, no rebound. No masses appreciated. Female : deferred Musculoskeletal: Normal range of motion, no pitting or edema. No cyanosis. NEUROLOGICAL: Cranial nerves grossly intact. Normal speech, normal gait. Normal sensory, motor exams PSYCH: Normal mood, normal affect. SKIN: Warm, Dry, normal turgor, no rashes or lesions noted. Dictation was performed using [employer] voice recognition software TRAVEL OUTSIDE OF THE [place] IN LAST 30 DAYS: No - HPI Onset: Yesterday Onset/Duration: Gradual Quality of pain: Achy Pain Level: 3 Context: denies: Chronic problem, New onset, General body pain, Joint pain, Cold exposure, Recent physical stress, Recent emotional stress, Recent illness, Other - Related Data Allergies/Adverse Reactions: No Known Allergies Allergy (Verified 06/22/17 07:09) Past Medical History - Social History Smoking Status: Unknown if Ever Smoked Cigarette use (# per day): No Chew tobacco use (# tins/day): No Smoking Education Provided: No Frequency of alcohol use: Rare Drug Abuse: denies: None, Bath salts, Cocaine, Heroin, Marijuana, Methamphetamine, Prescription drugs, Other Lives with: Family Family History: CAD, Hypertension, Thyroid Disfunction Patient has suicidal ideation: No Patient has homicidal ideation: No - Past Medical History Cardiac Medical History: Reports: Hx Hypertension Renal/ Medical History: Denies: Hx Peritoneal Dialysis Malignancy Medical History: Reports: Hx Breast Cancer - 2 years ago. She had breast cancer in 2013 that relapsed in the same year. Past Surgical History: Reports: Hx Breast Surgery - LT lumpectomy, Hx Gynecologic Surgery - ablasion, Hx Tubal Ligation, Other - Lumpectomy, D&C, and endometrial ablation - Immunizations Hx Diphtheria, Pertussis, Tetanus Vaccination: Yes Review of Systems - Review of Systems Constitutional: denies: No symptoms reported, See HPI, Chills, Diaphoresis, Fever, Malaise, Weakness, Other, Weight gain, Weight loss, Recent illness EENT: denies: No symptoms reported, See HPI, Eye pain, Eye discharge, Blurred vision, Tearing, Double vision, Ear pain, Ear discharge, Nose pain, Nose congestion, Nose discharge, Sinus pressure, Sinus discharge, Throat pain, Difficulty swallowing, Throat swelling, Mouth pain, Mouth swelling, Dental problem, Vertigo, Other Cardiovascular: See HPI Respiratory: denies: No symptoms reported, See HPI, Cough, Hurts to breathe, Hemoptysis, Short of breath, Sputum, Stridor, Wheezing, Other Gastrointestinal: denies: No symptoms reported, See HPI, Abdomen distended, Abdominal pain, Diarrhea, Nausea, Vomiting, Constipation, Blood streaked bowels , Poor appetite, Poor fluid intake, Blood in vomit, Black stools, Rectal bleeding, Last bowel movement, Fecal incontinence, Other Genitourinary: denies: No symptoms reported, See HPI, Burning, Dysuria, Discharge, Frequency, Flank pain, Hematuria, Incontinence, Pain, Urgency, Retention, Other Female Genitourinary: denies: No symptoms reported, See HPI, Last menstrual period, , Post menopausal, Heavy/abnormal periods, Irregular period, Vaginal bleeding, Vaginal discharge, Vaginal odor, Painful intercourse, Other Musculoskeletal: denies: No symptoms reported, See HPI, Back pain, Gout, Joint pain, Joint swelling, Muscle pain, Muscle stiffness, Neck pain, Deformity, Leg swelling, Ankle swelling, Other Skin: denies: No symptoms reported, See HPI, Change in color, Change in hair/ nails, Dryness, Lesions, Lumps, Rash, Other Hematologic/Lymphatic: denies: No symptoms reported, See HPI, Anemia, Blood clots, Easy bleeding, Easy bruising, Enlarged lymph nodes, Swollen glands, Other Neurological/Psychological: denies: No symptoms reported, See HPI, Confusion, Dementia, Depression, Hallucinations, Anxiety, Homicidal ideation, Sensory change, Weakness, Gait changes, Loss of power, Paralysis, Seizure, Lost consciousness, Headaches, Speech impairment, Numbness, Suicidal ideation, Tingling, Tremor, Other Physical Exam - Vital signs Vitals: Temp Pulse Resp BP Pulse Ox 97.9 F 58 L 18 134/95 H 100 06/22/17 06:41 06/22/17 06:41 06/22/17 06:41 06/22/17 06:41 06/22/17 06:41 - Notes Notes: Dictated Course - Re-evaluation Re-evalutation: 06/22/17 14:32 Given pain medications - Vital Signs Vital signs: Temp Pulse Resp BP Pulse Ox 97.9 F 58 L 18 123/93 H 97 06/22/17 06:41 06/22/17 06:41 06/22/17 12:00 06/22/17 07:37 06/22/17 12:00 - Laboratory Result Diagrams: 06/22/17 08:36 06/22/17 08:36 Laboratory results interpreted by me: 06/22/17 06/22/17 08:36 08:36 Eosinophils % 6.6 H Chloride 113 H Est GFR (Non-Af Amer) 58 L Creatine Kinase 194 H Total Protein 6.1 L Albumin 3.4 L - Diagnostic Test Radiology reviewed: Reports reviewed - Reported by radiologist as normal - EKG Interpretation by Me EKG shows normal: Sinus rhythm, Wharton - Normal axis Rate: Normal - 59 bpm Rhythm: NSR - No acute ST or T-wave changes normal cardiogram Discharge - Discharge Clinical Impression: Chest pain Qualifiers: Chest pain type: other chest pain Qualified Code(s): R07.89 - Other chest pain ; R07.8 - Other chest pain HTN (hypertension) Qualifiers: Hypertension type: essential hypertension Qualified Code(s): I10 - Essential ( primary) hypertension Condition: Fair Disposition: HOME, SELF-CARE Instructions: Chest Wall Pain ([facility]) Prescriptions: Hydrocodone/Acetaminophen [Vicodin 5-300 mg Tablet] 1 - 2 tab PO ASDIR PRN #15 tab PRN Reason:
--- NOTE | 2017-06-22 08:46 | RADIOLOGY REPORT (SQ) ---
EXAM DESCRIPTION: CHEST SINGLE VIEW COMPLETED DATE/TIME: 06/22/2017 8:25 am REASON FOR STUDY: Chest pain COMPARISON: 04/05/2017 EXAM PARAMETERS: NUMBER OF VIEWS: One view. TECHNIQUE: Single frontal radiographic view of the chest acquired. RADIATION DOSE: NA LIMITATIONS: None. FINDINGS: LUNGS AND PLEURA: No opacities, masses or pneumothorax. No pleural effusion. MEDIASTINUM AND HILAR STRUCTURES: No masses. Contour normal. HEART AND VASCULAR STRUCTURES: Heart normal in size. Normal vasculature. BONES: No acute findings. HARDWARE: None in the chest. OTHER: No other significant finding. IMPRESSION: NO ACUTE RADIOGRAPHIC FINDING IN THE CHEST. TECHNICAL DOCUMENTATION: JOB ID: [id number] [employer]- All Rights Reserved Reading location - IP/workstation name: [email or web address]
[2017-06-22 08:54] LABS: ABSOLUTE BASOPHILS # (AUTO) 0.1 10^3/uL (0.0-0.2); ABSOLUTE EOSINOPHILS # (AUTO) 0.4 10^3/uL (0.0-0.6); ABSOLUTE LYMPHOCYTES (AUTO) 1.5 10^3/uL (0.5-4.7); ABSOLUTE MONOCYTES (AUTO) 0.5 10^3/uL (0.1-1.4); ABSOLUTE NEUT (AUTO) 3.1 10^3/uL (1.7-8.2); BASOPHILS % (AUTO) 0.9 % (0-2); EOSINOPHILS % (AUTO) 6.6 % (0-6); HEMATOCRIT 36.4 % (36.0-47.0); HEMOGLOBIN 12.3 g/dL (12.0-15.5); LYMPHOCYTES % (AUTO) 27.9 % (13-45); MEAN CORPUSCULAR HEMOGLOBIN 28.2 pg (27.0-33.4); MEAN CORPUSCULAR HGB CONC 33.7 g/dL (32.0-36.0); MEAN CORPUSCULAR VOLUME 84 fl (80-97); MONOCYTES % (AUTO) 8.4 % (3-13); PLATELET COUNT 208 10^3/uL (150-450); RED BLOOD COUNT 4.36 10^6/uL (3.72-5.28); SEGMENTED NEUTROPHILS % (AUTO) 56.2 % (42-78); TOTAL CELLS COUNTED % (AUTO) 100 %; WHITE BLOOD COUNT 5.4 10^3/uL (4.0-10.5)
[2017-06-22 09:10] LABS: ALANINE AMINOTRANSFERASE 25 U/L (9-52); ALBUMIN 3.4 g/dL (3.5-5.0); ALKALINE PHOSPHATASE 42 U/L (38-126); ANION GAP 8 (5-19); ASPARTATE AMINO TRANSFERASE 21 U/L (14-36); BILIRUBIN,DIRECT 0.2 mg/dL (0.0-0.4); BILIRUBIN,TOTAL 0.5 mg/dL (0.2-1.3); BLOOD UREA NITROGEN 13 mg/dL (7-20); CALCIUM 9.2 mg/dL (8.4-10.2); CARBON DIOXIDE 23 mmol/L (22-30); CHLORIDE 113 mmol/L (98-107); CREATINE KINASE 194 U/L (30-135); GLUCOSE 85 mg/dL (75-110); SODIUM 143.7 mmol/L (137-145); TOTAL PROTEIN 6.1 g/dL (6.3-8.2)
[2017-06-22 09:20] LABS: CREATINE KINASE MB 0.84 ng/mL (<4.55); TROPONIN I 0.022 ng/mL
[2017-06-22 12:05] VITALS: BP 123/93
== END 2017-06-22 14:42 | disposition home or self-care (01) ==
LOC: ER 06:25
DX: R07.89 Other chest pain (principal); I10 Essential (primary) hypertension; Z85.3 Personal history of malignant neoplasm of breast; Z98.51 Tubal ligation status
CPT/HCPCS: 93005; 99285; 96374; 96375; 36415; 82553; 82550; 85025; 80053; 84484; 85379; 71045; 93010; J3010; J7512; J2405

== ENCOUNTER 2017-07-18 18:10 | Emergency (ER) | payer OTHER ==
[2017-07-18] MEDS ORDERED: KETOROLAC TROMETHAMINE 60 MG/2 ML SDV IM ONE (18:48)
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
[2017-07-18 19:57] VITALS: BP 133/87
== END 2017-07-18 20:17 | disposition home or self-care (01) ==
LOC: ER 18:10
DX: S16.1XXA Strain of muscle, fascia and tendon at neck level, initial encounter (principal); S39.012A Strain of muscle, fascia and tendon of lower back, initial encounter; M25.512 Pain in left shoulder; M54.2 Cervicalgia; V87.7XXA Person injured in collision between other specified motor vehicles (traffic), initial encounter; I10 Essential (primary) hypertension
CPT/HCPCS: 99284; 96372; 72110; 73030; 72125; J1885

== ENCOUNTER 2017-11-23 17:42 | Emergency (ER) | payer SELFPAY ==
[2017-11-23] MEDS ORDERED: ASPIRIN 81 MG TABLET, CHEWABLE PO ONE (17:59)
[2017-11-23] MEDS ORDERED: CLONIDINE HCL 0.2 MG TABLET PO ONE (18:00)
--- NOTE | 2017-11-23 18:02 | ER Document Report ---
ED Medical Screen (RME) - General Chief Complaint: Chest Pain Stated Complaint: CHEST PAIN Time Seen by Provider: 11/23/17 17:56 Notes: 52 years old female with a history of hypertension was having running nose and upper respiratory tract symptoms, took pseudoephedrine for the last couple of days, started palpitation, substernal chest pain from right to left, associated with nausea. On examination-slight chest wall tenderness noted. TRAVEL OUTSIDE OF THE [place] IN LAST 30 DAYS: No - Related Data Allergies/Adverse Reactions: No Known Allergies Allergy (Verified 11/23/17 17:45) Past Medical History - Social History Frequency of alcohol use: None Drug Abuse: None - Past Medical History Cardiac Medical History: Reports: Hx Hypertension Renal/ Medical History: Denies: Hx Peritoneal Dialysis Malignancy Medical History: Reports: Hx Breast Cancer - 2 years ago. She had breast cancer in 2013 that relapsed in the same year. Past Surgical History: Reports: Hx Breast Surgery - LT lumpectomy, Hx Gynecologic Surgery - ablasion, Hx Tubal Ligation, Other - Lumpectomy, D&C, and endometrial ablation - Immunizations Hx Diphtheria, Pertussis, Tetanus Vaccination: Yes History of Influenza Vaccine for 11/2016 - 04/2017 Season: No Physical Exam - Vital signs Vitals: Temp Pulse Resp BP Pulse Ox 98.1 F 83 18 180/114 H 98 11/23/17 17:51 11/23/17 17:51 11/23/17 17:51 11/23/17 17:51 11/23/17 17:51 Course - Vital Signs Vital signs: Temp Pulse Resp BP Pulse Ox 98.1 F 83 18 180/114 H 98 11/23/17 17:51 11/23/17 17:51 11/23/17 17:51 11/23/17 17:51 11/23/17 17:51 Doctor's Discharge - Discharge Referrals: [facility] [Primary Care Provider] - Follow up as needed
--- NOTE | 2017-11-23 19:13 | RADIOLOGY REPORT (SQ) ---
EXAM DESCRIPTION: CHEST SINGLE VIEW COMPLETED DATE/TIME: 11/23/2017 6:56 pm REASON FOR STUDY: Chest pain COMPARISON: 06/12/2017 EXAM PARAMETERS: NUMBER OF VIEWS: One view. TECHNIQUE: Single frontal radiographic view of the chest acquired. RADIATION DOSE: NA LIMITATIONS: None. FINDINGS: LUNGS AND PLEURA: No opacities, masses or pneumothorax. No pleural effusion. MEDIASTINUM AND HILAR STRUCTURES: No masses. Contour normal. HEART AND VASCULAR STRUCTURES: Heart normal in size. Normal vasculature. BONES: No acute findings. HARDWARE: None in the chest. Left axillary surgical clips are again noted. OTHER: No other significant finding. IMPRESSION: NO ACUTE RADIOGRAPHIC FINDING IN THE CHEST. TECHNICAL DOCUMENTATION: JOB ID: [id number] [employer]- All Rights Reserved Reading location - IP/workstation name: [email or web address]
[2017-11-23 19:25] LABS: ABSOLUTE BASOPHILS # (AUTO) 0.1 10^3/uL (0.0-0.2); ABSOLUTE EOSINOPHILS # (AUTO) 0.2 10^3/uL (0.0-0.6); ABSOLUTE MONOCYTES (AUTO) 0.4 10^3/uL (0.1-1.4); ABSOLUTE NEUT (AUTO) 2.9 10^3/uL (1.7-8.2); BASOPHILS % (AUTO) 1.4 % (0-2); EOSINOPHILS % (AUTO) 4.1 % (0-6); HEMATOCRIT 39.9 % (36.0-47.0); HEMOGLOBIN 13.5 g/dL (12.0-15.5); LYMPHOCYTES % (AUTO) 34.7 % (13-45); MEAN CORPUSCULAR HEMOGLOBIN 28.8 pg (27.0-33.4); MEAN CORPUSCULAR HGB CONC 33.9 g/dL (32.0-36.0); MEAN CORPUSCULAR VOLUME 85 fl (80-97); MONOCYTES % (AUTO) 7.6 % (3-13); PLATELET COUNT 246 10^3/uL (150-450); RED BLOOD COUNT 4.69 10^6/uL (3.72-5.28); RED CELL DISTRIBUTION WIDTH 14.2 % (11.5-14.0); SEGMENTED NEUTROPHILS % (AUTO) 52.2 % (42-78); TOTAL CELLS COUNTED % (AUTO) 100 %; WHITE BLOOD COUNT 5.7 10^3/uL (4.0-10.5)
[2017-11-23] MEDS ORDERED: MORPHINE SULFATE 10 MG/ML INJ IV ONE (19:56)
[2017-11-23 20:01] LABS: ALANINE AMINOTRANSFERASE 6 U/L (9-52); ALBUMIN 4.1 g/dL (3.5-5.0); ALKALINE PHOSPHATASE 72 U/L (38-126); ANION GAP 8 (5-19); ASPARTATE AMINO TRANSFERASE 60 U/L (14-36); BILIRUBIN,DIRECT 0.6 mg/dL (0.0-0.4); BILIRUBIN,TOTAL 0.8 mg/dL (0.2-1.3); BLOOD UREA NITROGEN 15 mg/dL (7-20); CALCIUM 9.5 mg/dL (8.4-10.2); CARBON DIOXIDE 25 mmol/L (22-30); CHLORIDE 108 mmol/L (98-107); CREATINE KINASE 124 U/L (30-135); GLUCOSE 95 mg/dL (75-110); POTASSIUM 4.5 mmol/L (3.6-5.0); SODIUM 141.3 mmol/L (137-145); TOTAL PROTEIN 7.5 g/dL (6.3-8.2)
[2017-11-23 20:13] LABS: CREATINE KINASE MB 0.56 ng/mL (<4.55); TROPONIN I 0.031 ng/mL
--- NOTE | 2017-11-23 20:13 | ER Document Report ---
ED Cardiac - General Chief Complaint: Chest Pain Stated Complaint: CHEST PAIN Time Seen by Provider: 11/23/17 17:56 Mode of Arrival: Ambulatory Information source: Patient Notes: Patient is a 52-year-old female who presents with chief complaint of chest pain. Patient reports that she began having chest pain approximately 3 hours prior to arrival. She states that the pain is located on the right side of her chest with slight radiation to the left side. Patient reports she has had an upper respiratory illness over the last week with cough and congestion. Patient states that she was resting when the pain started, describes it as an aching pain. Patient denies any shortness of breath, diaphoresis or radiation into her jaw or arms. Patient reports past medical history of hypertension and breast cancer but denies any other cardiac history. Patient states she has had similar episodes in the past and has always had a negative workup. TRAVEL OUTSIDE OF THE [place] IN LAST 30 DAYS: No - Related Data Allergies/Adverse Reactions: No Known Allergies Allergy (Verified 11/23/17 17:45) Past Medical History - General Information source: Patient - Social History Smoking Status: Never Smoker Frequency of alcohol use: None Drug Abuse: None Family History: CAD, Hypertension, Thyroid Disfunction Patient has suicidal ideation: No Patient has homicidal ideation: No - Past Medical History Cardiac Medical History: Reports: Hx Hypertension Renal/ Medical History: Denies: Hx Peritoneal Dialysis Malignancy Medical History: Reports: Hx Breast Cancer - 2 years ago. She had breast cancer in 2013 that relapsed in the same year. Past Surgical History: Reports: Hx Breast Surgery - LT lumpectomy, Hx Gynecologic Surgery - ablasion, Hx Tubal Ligation, Other - Lumpectomy, D&C, and endometrial ablation - Immunizations Hx Diphtheria, Pertussis, Tetanus Vaccination: Yes Review of Systems - Review of Systems Cardiovascular: Chest pain Respiratory: Cough, Other - Congestion Gastrointestinal: Nausea -: Yes All other systems reviewed and negative Physical Exam - Vital signs Vitals: Temp Pulse Resp BP Pulse Ox 98.1 F 83 18 180/114 H 98 11/23/17 17:51 11/23/17 17:51 11/23/17 17:51 11/23/17 17:51 11/23/17 17:51 - Notes Notes: PHYSICAL EXAMINATION: GENERAL: Well-appearing, well-nourished and in no acute distress. HEAD: Atraumatic, normocephalic. EYES: Pupils equal round and reactive to light, extraocular movements intact, conjunctiva are normal. ENT: Nares patent, oropharynx clear without exudates. Moist mucous membranes. NECK: Normal range of motion, supple without lymphadenopathy LUNGS: Breath sounds clear to auscultation bilaterally and equal. No wheezes rales or rhonchi. HEART: Regular rate and rhythm without murmurs ABDOMEN: Soft, nontender, nondistended abdomen. No guarding, no rebound. No masses appreciated. Female : deferred Musculoskeletal: Normal range of motion, no pitting or edema. No cyanosis. Tenderness to palpation along right chest wall along the sternal border. NEUROLOGICAL: Cranial nerves grossly intact. Normal speech, normal gait. Normal sensory, motor exams PSYCH: Normal mood, normal affect. SKIN: Warm, Dry, normal turgor, no rashes or lesions noted. Course - Re-evaluation Re-evalutation: Patient was seen by provider in triage and given clonidine 0.2 mg. Patient's blood pressure at time of my initial assessment is 109/64. Patient continues to have chest pain 2/5. Currently pending lab work. Initial lab workup including troponin is unremarkable. Chest x-ray with no acute findings. EKG sinus bradycardia rate of 59, normal axis, no ST segment elevations or depressions. Patient is agreeable to stay for delta troponin. Repeat troponin is negative. Patient given GI cocktail and patient has much improvement of her symptoms down to 0/5. Heart score 2. PERC negative. Patient will be discharged home in stable condition, given prescription for omeprazole. Patient will follow up with her primary care provider. - Vital Signs Vital signs: Temp Pulse Resp BP Pulse Ox 98.6 F 83 17 112/85 99 11/23/17 23:38 11/23/17 17:51 11/23/17 23:00 11/23/17 23:00 11/23/17 23:00 - Laboratory Result Diagrams: 11/23/17 19:00 11/23/17 19:00 Laboratory results interpreted by me: 11/23/17 11/23/17 19:00 19:00 RDW 14.2 H Chloride 108 H Direct Bilirubin 0.6 H AST 60 H ALT 6 L Discharge - Discharge Clinical Impression: Chest pain Qualifiers: Chest pain type: unspecified Qualified Code(s): R07.9 - Chest pain, unspecified Condition: Stable Disposition: HOME, SELF-CARE Additional Instructions: Chest Wall Pain Your chest pain has been diagnosed as coming from the chest wall. This is often caused by straining the muscles or joints in the chest during physical activity, direct trauma, coughing, or vigorous vomiting. Persons with arthritis are especially prone to this type of pain, due to inflammation of the cartilage joints near the breast bone. Occasionally, no cause can be found. Rest from strenuous physical activity. This kind of chest pain is usually made worse by movement of the chest. Depending on the symptoms, we may prescribe medicine for pain, muscle relaxation, and antiinflammatory effects. If the pain is new, and seems to be due to muscle strain, cold packs can help. Otherwise, apply gentle warmth to the painful area for 15 minutes every hour or two. You should contact the doctor immediately if things change. Further evaluation is needed if you develop a fever or cough, if the nature of the pain changes, or if you become short of breath. You were seen today for chest pain. The exact cause of your pain is unclear. However, based on your cardiac enzyme testing, chest x-ray, and EKG it does not appear that it is from an immediately life-threatening cause at this time. Although your testing here is normal is critical that you follow-up with your primary care physician for continued evaluation of this chest pain and possible stress testing. I recommended you see your physician within the next 24-48 hours to be evaluated for consideration of a stress test. Please return to emergency department immediately if you have worsening of your chest pain, shortness of breath, vomiting, become unable to exert yourself due to pain or difficulty breathing, you pass out, or have any pain that radiates into your arms, jaw, or back. Please also return if you have any additional symptoms that are concerning to you. Your workup today was negative. Your EKG, chest x-ray and cardiac enzymes were all normal. I did give you a GI cocktail. This typically helps with symptoms of acid reflux or GERD. You may want to consider trying to take some omeprazole or Prilosec [id number]. Please follow-up with your primary care provider. Return to the emergency department for worsening chest pain, shortness of breath, nausea or any other symptom that is concerning to you. Prescriptions: Omeprazole 20 mg PO BID #20 capsule.dr Forms: Return to Work Referrals: [facility] [NO LOCAL MD] - Follow up as needed
--- NOTE | 2017-11-23 20:53 | EKG REPORT ---
SEVERITY:- ABNORMAL ECG - SINUS RHYTHM LEFT VENTRICULAR HYPERTROPHY : Confirmed by: Lidya Dillon MD 23-Nov-2017 20:52:17
[2017-11-23] MEDS ORDERED: KETOROLAC TROMETHAMINE INJ/PF 30 MG/1 ML SDV IV ONE (22:11)
[2017-11-23] MEDS ORDERED: ONDANSETRON HCL INJ/PF 4 MG/2 ML SDV IV ONE (22:35)
[2017-11-23] MEDS ORDERED: METOCLOPRAMIDE HCL ORAL SOLN 10 MG/10 ML UDCUP PO ONE (23:09)
[2017-11-23] MEDS ORDERED: LIDOCAINE 2% VISCOUS SOLN 20 ML UDCUP PO ONE (23:09)
[2017-11-23] MEDS ORDERED: MAG HYDROX/AL HYDROX/SIMETH SUSP 30 ML UDCUP PO ONE (23:09)
[2017-11-23 23:28] VITALS: BP 112/85
== END 2017-11-23 23:38 | disposition home or self-care (01) ==
LOC: ER 17:42
DX: R07.9 Chest pain, unspecified (principal); R05 Cough; I10 Essential (primary) hypertension; Z98.51 Tubal ligation status
CPT/HCPCS: 93005; 99285; 96374; 96375; 36415; 82553; 82550; 85025; 80053; 84484; 71045; 93010; J3490; J1885; J2270; J2405

== ENCOUNTER 2017-12-03 10:21 | Emergency (ER) | payer SELFPAY ==
--- NOTE | 2017-12-03 10:32 | ER Document Report ---
ED General - General Chief Complaint: Chest Pain Stated Complaint: CHEST PAIN Time Seen by Provider: 12/03/17 10:32 Notes: Patient is a 52-year-old female that presents to the emergency department for chief complaint of chest pain. Patient states that she has been having this pain today as a tightening in her chest on the right side of her chest around the right breast, that has been constant but intermittently will get worse throughout the day. She denies having any worsening of the pain with exertion. She currently rates the pain as a 1 out of 10. She had similar episodes about a week ago, and was seen in the emergency department at that time, and had a full cardiac evaluation and was negative and she was discharged home to follow-up. She did call for a appointment with her primary care, and will be seen on the , but they advised her to come to the emergency department today. She denies having any significant shortness of breath, denies nausea or vomiting associated with this. She is a former smoker but quit 15 years ago, no stress test history, mother had cardiac issues in her 60s. She is currently on tamoxifen, for breast cancer in remission. Past Medical History: Breast cancer, hypertension Past Surgical History: Lumpectomy Social History: Former smoker, quit 15 years ago, denies alcohol or drug use Family History: Mother: CAD in her 60s, end-stage renal disease Allergies: Reviewed, see documented allergy list. REVIEW OF SYSTEMS: Unless otherwise stated in this report the patient's positive and negative responses for review of systems for constitutional, eyes, ENT, cardiovascular, respiratory, gastrointestinal, neurological, genitourinary, musculoskeletal, and integumentary systems and related systems to the presenting problem are either as stated in the HPI or were not pertinent or were negative for the symptoms and/or complaints related to the presenting medical problem. PHYSICAL EXAMINATION: Vital signs reviewed, nursing noted reviewed. GENERAL: Well-appearing, well-nourished and in no acute distress. HEAD: Atraumatic, normocephalic. EYES: Eyes appear normal, extraocular movements intact, sclera anicteric, conjunctiva are normal. ENT: nares patent, oropharynx clear without exudates. Moist mucous membranes. NECK: Normal range of motion, supple without lymphadenopathy LUNGS: Breath sounds clear to auscultation bilaterally and equal. No wheezes rales or rhonchi. HEART: Regular rate and rhythm without murmurs ABDOMEN: Soft, nontender, normoactive bowel sounds. No rebound, guarding, or rigidity. No masses appreciated. EXTREMITIES: Nontender, good range of motion, no pitting or edema. NEUROLOGICAL: No focal neurological deficits. Moves all extremities spontaneously Motor and sensory grossly intact on exam. PSYCH: Normal mood, normal affect. SKIN: Warm, Dry, normal turgor, no rashes or lesions noted on exposed skin TRAVEL OUTSIDE OF THE [place] IN LAST 30 DAYS: No - Related Data Allergies/Adverse Reactions: No Known Allergies Allergy (Verified 11/23/17 17:45) Past Medical History - Social History Smoking Status: Former Smoker Family History: CAD, Hypertension, Thyroid Disfunction - Past Medical History Cardiac Medical History: Reports: Hx Hypertension Renal/ Medical History: Denies: Hx Peritoneal Dialysis Malignancy Medical History: Reports: Hx Breast Cancer - 2 years ago. She had breast cancer in 2013 that relapsed in the same year. Past Surgical History: Reports: Hx Breast Surgery - LT lumpectomy, Hx Gynecologic Surgery - ablasion, Hx Tubal Ligation, Other - Lumpectomy, D&C, and endometrial ablation - Immunizations Hx Diphtheria, Pertussis, Tetanus Vaccination: Yes Physical Exam - Vital signs Vitals: Temp Pulse Resp BP Pulse Ox 97.7 F 72 17 141/105 H 99 12/03/17 10:24 12/03/17 10:24 12/03/17 10:24 12/03/17 10:24 12/03/17 10:24 Course - Re-evaluation Re-evalutation: Presentation of chest pain in an otherwise well appearing patient. Low clinical suspicion for ACS given clinical history, exam, EKG without ST elevations or depressions, and negative initial troponin. HEART score less than or equal to 3. PE also seems unlikely given clinical history, absence of tachycardia or dyspnea. CXR without evidence of pneumothorax or pneumonia. No widened mediastinum. Aortic dissection also seems unlikely given history, symmetric pulses, CXR, and vitals. D-dimer negative HEART Score: History 0 ECG 0 Age 1 Risk Factors 2 Troponin 0 Total: 3 Chest pain in a patient without evidence of cardiac or other serious etiology on workup today. I discussed with patient that, based on their age, risk factors and emergency department testing today, the likelihood that their symptoms are related to a heart attack is very low (estimated risk of heart attack or over the next 30 days of less than 1%). The patient demonstrates decision making capacity and has verbalized an understanding of these risks to me. Based on this, the patient has chosen to follow-up as an outpatient. Usual chest pain return precautions reviewed. The patient states understanding and agreement with this plan. Patient second troponin was negative, she was feeling better, chest pain-free, I discussed this case with the on-call seismology technical officer Dr. Plasencia, who was gracious enough to provide his cell phone number, to have the patient call him tomorrow, for possible stress test, the patient was grateful, and will follow-up, advised that she would like she can take an 81 mg aspirin daily. Laboratory 12/03/17 12/03/17 12/03/17 10:44 10:44 10:44 WBC 4.8 RBC 4.70 Hgb 13.7 Hct 39.7 MCV 84 MCH 29.1 MCHC 34.5 RDW 14.2 H Plt Count 247 Seg Neutrophils % 48.0 Lymphocytes % 34.5 Monocytes % 11.1 Eosinophils % 5.2 Basophils % 1.2 Absolute Neutrophils 2.3 Absolute Lymphocytes 1.7 Absolute Monocytes 0.5 Absolute Eosinophils 0.3 Absolute Basophils 0.1 PT 13.3 INR 0.96 D-Dimer 0.45 Sodium Cancelled Potassium Cancelled Chloride Cancelled Carbon Dioxide Cancelled Anion Gap Cancelled BUN Cancelled Creatinine Cancelled Est GFR ( Amer) Cancelled Est GFR (Non-Af Amer) Cancelled Glucose Cancelled Calcium Cancelled Total Bilirubin Cancelled Direct Bilirubin Cancelled Neonat Total Bilirubin Cancelled Neonat Direct Bilirubin Cancelled Neonat Indirect Bili Cancelled AST Cancelled ALT Cancelled Alkaline Phosphatase Cancelled Troponin I Total Protein Cancelled Albumin Cancelled 12/03/17 12/03/17 12/03/17 10:44 11:27 11:27 WBC RBC Hgb Hct MCV MCH MCHC RDW Plt Count Seg Neutrophils % Lymphocytes % Monocytes % Eosinophils % Basophils % Absolute Neutrophils Absolute Lymphocytes Absolute Monocytes Absolute Eosinophils Absolute Basophils PT INR D-Dimer Sodium 140.6 Potassium 4.2 Chloride 110 H Carbon Dioxide 23 Anion Gap 8 BUN 14 Creatinine 0.94 Est GFR ( Amer) > 60 Est GFR (Non-Af Amer) > 60 Glucose 96 Calcium 9.2 Total Bilirubin 0.6 Direct Bilirubin 0.3 Neonat Total Bilirubin Not Reportable Neonat Direct Bilirubin Not Reportable Neonat Indirect Bili Not Reportable AST 34 ALT 28 Alkaline Phosphatase 76 Troponin I Cancelled 0.024 Total Protein 7.1 Albumin 3.7 12/03/17 15:09 WBC RBC Hgb Hct MCV MCH MCHC RDW Plt Count Seg Neutrophils % Lymphocytes % Monocytes % Eosinophils % Basophils % Absolute Neutrophils Absolute Lymphocytes Absolute Monocytes Absolute Eosinophils Absolute Basophils PT INR D-Dimer Sodium Potassium Chloride Carbon Dioxide Anion Gap BUN Creatinine Est GFR ( Amer) Est GFR (Non-Af Amer) Glucose Calcium Total Bilirubin Direct Bilirubin Neonat Total Bilirubin Neonat Direct Bilirubin Neonat Indirect Bili AST ALT Alkaline Phosphatase Troponin I 0.027 Total Protein Albumin Chest X-Ray 12/03/17 10:35 IMPRESSION: NO ACUTE RADIOGRAPHIC FINDING IN THE CHEST. - Vital Signs Vital signs: Temp Pulse Resp BP Pulse Ox 97.5 F 73 12 145/97 H 100 12/03/17 10:29 12/03/17 10:29 12/03/17 16:01 12/03/17 16:01 12/03/17 16:00 - Laboratory Result Diagrams: 12/03/17 10:44 12/03/17 11:27 Laboratory results interpreted by me: 12/03/17 12/03/17 10:44 11:27 RDW 14.2 H Chloride 110 H - EKG Interpretation by Me Additional EKG results interpreted by me: EKG demonstrates sinus rhythm with a ventricle rate of 60 bpm, left axis deviation, normal intervals, no evidence of acute ischemia in this EKG. Discharge - Discharge Clinical Impression: Chest pain Qualifiers: Chest pain type: unspecified Qualified Code(s): R07.9 - Chest pain, unspecified Instructions: Chest Pain of Unclear Cause ([facility]) Additional Instructions: Please follow-up with a seismology technical officer, please call his personal phone number, he stated that you can call him tomorrow to set up an appointment. Dr. Lidya Plasencia PHONE NUMBER: [phone] Please return to the emergency department if you have any worsening, or concern of your symptoms. Please return to the emergency department if you develop chest pain, difficulty breathing, severe abdominal pain, or ongoing vomiting. Please follow-up with your primary care physician in 2-3 days and any other recommended physicians. If prescribed, take all medications as directed. If you have any questions or concerns do not hesitate to return the emergency department for evaluation. Referrals: LIDYA HOUSER MD [ACTIVE STAFF] - Follow up tomorrow
[2017-12-03 11:01] LABS: ABSOLUTE BASOPHILS # (AUTO) 0.1 10^3/uL (0.0-0.2); ABSOLUTE EOSINOPHILS # (AUTO) 0.3 10^3/uL (0.0-0.6); ABSOLUTE LYMPHOCYTES (AUTO) 1.7 10^3/uL (0.5-4.7); ABSOLUTE MONOCYTES (AUTO) 0.5 10^3/uL (0.1-1.4); ABSOLUTE NEUT (AUTO) 2.3 10^3/uL (1.7-8.2); BASOPHILS % (AUTO) 1.2 % (0-2); EOSINOPHILS % (AUTO) 5.2 % (0-6); HEMATOCRIT 39.7 % (36.0-47.0); HEMOGLOBIN 13.7 g/dL (12.0-15.5); LYMPHOCYTES % (AUTO) 34.5 % (13-45); MEAN CORPUSCULAR HEMOGLOBIN 29.1 pg (27.0-33.4); MEAN CORPUSCULAR HGB CONC 34.5 g/dL (32.0-36.0); MEAN CORPUSCULAR VOLUME 84 fl (80-97); MONOCYTES % (AUTO) 11.1 % (3-13); PLATELET COUNT 247 10^3/uL (150-450); RED CELL DISTRIBUTION WIDTH 14.2 % (11.5-14.0); TOTAL CELLS COUNTED % (AUTO) 100 %; WHITE BLOOD COUNT 4.8 10^3/uL (4.0-10.5)
[2017-12-03 11:18] LABS: INTERNATIONAL RATION (INR) 0.96; PROTHROMBIN TIME 13.3 SEC (11.4-15.4)
[2017-12-03 11:21] LABS: D-DIMER 0.45 ug/mL (0.00-0.50)
--- NOTE | 2017-12-03 11:25 | RADIOLOGY REPORT (SQ) ---
EXAM DESCRIPTION: CHEST 2 VIEWS COMPLETED DATE/TIME: 12/03/2017 11:14 am REASON FOR STUDY: chest pain COMPARISON: Two-view chest 04/05/2017 EXAM PARAMETERS: NUMBER OF VIEWS: two views TECHNIQUE: Digital Frontal and Lateral radiographic views of the chest acquired. RADIATION DOSE: NA LIMITATIONS: none FINDINGS: LUNGS AND PLEURA: No opacities, masses or pneumothorax. No pleural effusion. MEDIASTINUM AND HILAR STRUCTURES: No masses or contour abnormalities. HEART AND VASCULAR STRUCTURES: Heart normal size. No evidence for failure. BONES: No acute findings. HARDWARE: Surgical clips left breast OTHER: No other significant finding. IMPRESSION: NO ACUTE RADIOGRAPHIC FINDING IN THE CHEST. TECHNICAL DOCUMENTATION: JOB ID: [id number] [employer]- All Rights Reserved Reading location - IP/workstation name: [email or web address]
[2017-12-03] MEDS ORDERED: LIDOCAINE 2% VISCOUS SOLN 20 ML UDCUP PO ONE (11:46)
[2017-12-03] MEDS ORDERED: ACETAMINOPHEN 325 MG TABLET PO ONE (11:46)
[2017-12-03] MEDS ORDERED: MAG HYDROX/AL HYDROX/SIMETH SUSP 30 ML UDCUP PO ONE (11:46)
[2017-12-03] MEDS ORDERED: METOCLOPRAMIDE HCL ORAL SOLN 10 MG/10 ML UDCUP PO ONE (11:46)
[2017-12-03 12:04] LABS: ALANINE AMINOTRANSFERASE 28 U/L (9-52); ALBUMIN 3.7 g/dL (3.5-5.0); ALKALINE PHOSPHATASE 76 U/L (38-126); ANION GAP 8 (5-19); ASPARTATE AMINO TRANSFERASE 34 U/L (14-36); BILIRUBIN,DIRECT 0.3 mg/dL (0.0-0.4); BILIRUBIN,TOTAL 0.6 mg/dL (0.2-1.3); BLOOD UREA NITROGEN 14 mg/dL (7-20); CALCIUM 9.2 mg/dL (8.4-10.2); CARBON DIOXIDE 23 mmol/L (22-30); CHLORIDE 110 mmol/L (98-107); GLUCOSE 96 mg/dL (75-110); POTASSIUM 4.2 mmol/L (3.6-5.0); SODIUM 140.6 mmol/L (137-145); TOTAL PROTEIN 7.1 g/dL (6.3-8.2)
[2017-12-03] MEDS ORDERED: ASPIRIN 81 MG TABLET, CHEWABLE PO ONE (12:26)
[2017-12-03] MEDS ORDERED: MORPHINE SULFATE 10 MG/ML INJ IV ONE (12:26)
[2017-12-03] MEDS ORDERED: ONDANSETRON HCL INJ/PF 4 MG/2 ML SDV IV ONE (12:26)
[2017-12-03 16:29] VITALS: BP 145/97
--- NOTE | 2017-12-03 18:04 | EKG REPORT ---
SEVERITY:- ABNORMAL ECG - SINUS RHYTHM LEFT VENTRICULAR HYPERTROPHY : Confirmed by: Lidya Dillon MD 03-Dec-2017 18:04:16
== END 2017-12-03 16:47 | disposition home or self-care (01) ==
LOC: ER 10:21
DX: R07.89 Other chest pain (principal); I10 Essential (primary) hypertension; C50.919 Malignant neoplasm of unspecified site of unspecified female breast; Z79.899 Other long term (current) drug therapy; Z87.891 Personal history of nicotine dependence; Z82.49 Family history of ischemic heart disease and other diseases of the circulatory system
CPT/HCPCS: 93005; 99285; 96374; 96375; 36415; 85025; 85610; 80053; 84484; 85379; 71046; 93010; J3490; J2270; J2405

== ENCOUNTER 2018-03-21 05:51 | Emergency (ER) | payer SELFPAY ==
[2018-03-21] MEDS ORDERED: LIDOCAINE 2% VISCOUS SOLN 20 ML UDCUP PO ONE (06:47)
[2018-03-21] MEDS ORDERED: MAG HYDROX/AL HYDROX/SIMETH SUSP 30 ML UDCUP PO ONE (06:47)
[2018-03-21] MEDS ORDERED: FAMOTIDINE INJ/PF 20 MG/2 ML SDV IV ONE (06:47)
[2018-03-21] MEDS ORDERED: METOCLOPRAMIDE HCL ORAL SOLN 10 MG/10 ML UDCUP PO ONE (06:47)
[2018-03-21] MEDS ORDERED: NORMAL SALINE 1000 ML 1,000 ML IV ONE (06:47)
--- NOTE | 2018-03-21 06:50 | ER Document Report ---
ED General - General Chief Complaint: Abdominal Pain Stated Complaint: STOMACH PAINS Time Seen by Provider: 03/21/18 06:32 Primary Care Provider: [facility] [Primary Care Provider] - Follow up in 3-5 days TRAVEL OUTSIDE OF THE [place] IN LAST 30 DAYS: No - HPI Notes: Patient is a 53-year-old female that presents to the emergency department for chief complaint of abdominal pain. Patient reports acute onset of abdominal pain yesterday morning. Her pain is sharp and epigastric. She states it is now radiating more suprapubic. She denies associated nausea vomiting and diarrhea. She states the pain is been constant since onset. She did have a bowel movement yesterday which she states was small and firm. She does have a history of IBS in the past. She denies history of pancreatitis or recent alcohol use. She has not taken any medication at home for pain. She reports a difficult time eating and drinking because of pain stating the pain occurs immediately well swallowing Past Medical History: IBS Past Surgical History: Negative Social History: Denies drugs alcohol and tobacco Family History: Reviewed and noncontributory for presenting illness Allergies: Reviewed, see documented allergy list. REVIEW OF SYSTEMS: CONSTITUTIONAL : No fever No chills No diaphoresis No recent illness EENT: No vision changes No congestion No sore throat CARDIOVASCULAR: No chest pain No palpitations RESPIRATORY: No shortness of breath No cough No difficulty breathing GASTROINTESTINAL: abdominal pain No nausea No vomiting No diarrhea GENITOURINARY: No dysuria No hematuria No difficulty urinating MUSCULOSKELETAL: No back pain No leg pain No arm pain SKIN: No rashes No lesions LYMPHATIC: No swollen, enlarged glands. NEUROLOGICAL: No lightheadedness No headache No weakness No paresthesias PSYCHIATRIC: No anxiety No depression PHYSICAL EXAMINATION: Vital signs reviewed, nursing noted reviewed. GENERAL: Well-appearing, well-nourished and in no acute distress. HEAD: Atraumatic, normocephalic. EYES: Eyes appear normal, extraocular movements intact, sclera anicteric, conjunctiva are normal. ENT: nares patent, oropharynx clear without exudates. Moist mucous membranes. NECK: Normal range of motion, supple without lymphadenopathy LUNGS: Breath sounds clear to auscultation bilaterally and equal. No wheezes rales or rhonchi. HEART: Regular rate and rhythm without murmurs ABDOMEN: Mild protuberance, soft, epigastric tenderness, negative Cha sign, no McBurney's point tenderness, normoactive bowel sounds. No rebound, guarding, or rigidity. No masses appreciated. EXTREMITIES: Nontender, good range of motion, no pitting or edema. NEUROLOGICAL: No focal neurological deficits. Moves all extremities spontaneously Motor and sensory grossly intact on exam. PSYCH: Normal mood, normal affect. SKIN: Warm, Dry, normal turgor, no rashes or lesions noted on exposed skin - Related Data Allergies/Adverse Reactions: No Known Allergies Allergy (Verified 03/21/18 07:31) Past Medical History - Social History Smoking Status: Never Smoker Family History: CAD, Hypertension, Thyroid Disfunction Patient has suicidal ideation: No Patient has homicidal ideation: No - Past Medical History Cardiac Medical History: Reports: Hx Hypertension Renal/ Medical History: Denies: Hx Peritoneal Dialysis Malignancy Medical History: Reports: Hx Breast Cancer - 2 years ago. She had breast cancer in 2013 that relapsed in the same year. Past Surgical History: Reports: Hx Breast Surgery - LT lumpectomy, Hx Gynecologic Surgery - ablasion, Hx Tubal Ligation, Other - Lumpectomy, D&C, and endometrial ablation - Immunizations Hx Diphtheria, Pertussis, Tetanus Vaccination: Yes Physical Exam - Vital signs Vitals: Temp Pulse Resp BP Pulse Ox 97.6 F 91 16 118/90 H 95 03/21/18 05:57 03/21/18 05:57 03/21/18 05:57 03/21/18 05:57 03/21/18 05:57 Course - Re-evaluation Re-evalutation: 03/21/18 07:42 Vitals reviewed. Nursing notes reviewed. Patient is afebrile nontoxic in appearance. Her lab work is unremarkable. She did have symptomatic relief on reevaluation after fluids, GI cocktail, and Pepcid. Patient's KUB shows moderate stool burden and she was advised to begin taking MiraLAX. She was also counseled on dietary changes to assist with gastritis which may also be present. Patient is on Prilosec at home and will continue to take that. She will begin taking MiraLAX for her constipation. She is stable at discharge. She was counseled on return precautions and verbalized understanding. Laboratory 03/21/18 03/21/18 03/21/18 06:48 06:48 06:57 WBC 6.2 RBC 5.16 Hgb 14.7 Hct 42.3 MCV 82 MCH 28.4 MCHC 34.7 RDW 14.0 Plt Count 196 Seg Neutrophils % 72.9 Lymphocytes % 18.9 Monocytes % 6.3 Eosinophils % 0.6 Basophils % 1.3 Absolute Neutrophils 4.5 Absolute Lymphocytes 1.2 Absolute Monocytes 0.4 Absolute Eosinophils 0.0 Absolute Basophils 0.1 Sodium 137.7 Potassium 3.8 Chloride 101 Carbon Dioxide 28 Anion Gap 9 BUN 16 Creatinine 1.18 Est GFR ( Amer) 58 L Est GFR (Non-Af Amer) 48 L Glucose 110 Calcium 9.4 Total Bilirubin 0.9 Direct Bilirubin 0.3 Neonat Total Bilirubin Not Reportable Neonat Direct Bilirubin Not Reportable Neonat Indirect Bili Not Reportable AST 37 H ALT 36 Alkaline Phosphatase 64 Total Protein 7.6 Albumin 4.5 Lipase 84.8 Urine Color YELLOW Urine Appearance CLEAR Urine pH 5.0 Ur Specific [place] 1.014 Urine Protein NEGATIVE Urine Glucose (UA) NEGATIVE Urine Ketones NEGATIVE Urine Blood NEGATIVE Urine Nitrite NEGATIVE Urine Bilirubin NEGATIVE Urine Urobilinogen NEGATIVE Ur Leukocyte Esterase NEGATIVE Urine WBC (Auto) 2 Urine RBC (Auto) 1 Squamous Epi Cells Auto <1 Urine Mucus (Auto) RARE Urine Ascorbic Acid NEGATIVE KUB X-Ray 03/21/18 06:50 IMPRESSION: 1. Nonspecific and nonobstructive bowel gas pattern. 2. Suspect punctate left renal calculus. - Vital Signs Vital signs: Temp Pulse Resp BP Pulse Ox 97.6 F 91 16 118/90 H 95 03/21/18 05:57 03/21/18 05:57 03/21/18 05:57 03/21/18 05:57 03/21/18 05:57 - Laboratory Result Diagrams: 03/21/18 06:48 03/21/18 06:48 Laboratory results interpreted by me: 03/21/18 06:48 Est GFR ( Amer) 58 L Est GFR (Non-Af Amer) 48 L AST 37 H Discharge - Discharge Clinical Impression: Abdominal pain Qualifiers: Abdominal location: generalized Qualified Code(s): R10.84 - Generalized abdominal pain Constipation Qualifiers: Constipation type: unspecified constipation type Qualified Code(s): K59.00 - Constipation, unspecified Condition: Stable Disposition: HOME, SELF-CARE Instructions: Abdominal Pain ([facility]), Constipation ([facility]) Additional Instructions: Please return to the emergency department if you have any worsening, or concern of your symptoms. Please return to the emergency department if you develop chest pain, difficulty breathing, severe abdominal pain, or ongoing vomiting. Please follow-up with your primary care physician in 2-3 days and any other recommended physicians. If prescribed, take all medications as directed. If you have any questions or concerns do not hesitate to return the emergency department for evaluation. Take MiraLAX 17 g (1 cap full) twice a day as needed for constipation. If you began having frequent loose stools decrease your dose to once a day or once ev claudio other day as needed to obtain daily soft bowel movements. Forms: Return to Work Referrals: [facility] [Primary Care Provider] - Follow up in 3-5 days
[2018-03-21 07:04] LABS: ABSOLUTE BASOPHILS # (AUTO) 0.1 10^3/uL (0.0-0.2); ABSOLUTE LYMPHOCYTES (AUTO) 1.2 10^3/uL (0.5-4.7); ABSOLUTE MONOCYTES (AUTO) 0.4 10^3/uL (0.1-1.4); ABSOLUTE NEUT (AUTO) 4.5 10^3/uL (1.7-8.2); BASOPHILS % (AUTO) 1.3 % (0-2); EOSINOPHILS % (AUTO) 0.6 % (0-6); HEMATOCRIT 42.3 % (36.0-47.0); HEMOGLOBIN 14.7 g/dL (12.0-15.5); LYMPHOCYTES % (AUTO) 18.9 % (13-45); MEAN CORPUSCULAR HEMOGLOBIN 28.4 pg (27.0-33.4); MEAN CORPUSCULAR HGB CONC 34.7 g/dL (32.0-36.0); MEAN CORPUSCULAR VOLUME 82 fl (80-97); MONOCYTES % (AUTO) 6.3 % (3-13); PLATELET COUNT 196 10^3/uL (150-450); RED BLOOD COUNT 5.16 10^6/uL (3.72-5.28); SEGMENTED NEUTROPHILS % (AUTO) 72.9 % (42-78); TOTAL CELLS COUNTED % (AUTO) 100 %; WHITE BLOOD COUNT 6.2 10^3/uL (4.0-10.5)
[2018-03-21 07:15] LABS: APPEARANCE,URINE CLEAR; BILIRUBIN,URINE NEGATIVE (NEGATIVE); COLOR,URINE YELLOW; GLUCOSE, URINE NEGATIVE (NEGATIVE); KETONES,URINE NEGATIVE (NEGATIVE); LEUKOCYTE ESTERASE,URINE NEGATIVE (NEGATIVE); NITRITE,URINE NEGATIVE (NEGATIVE); PROTEIN,URINE NEGATIVE (NEGATIVE); URINE SPECIFIC GRAVITY 1.014; UROBILINOGEN,URINE NEGATIVE mg/dL (<2.0)
[2018-03-21 07:23] LABS: ALANINE AMINOTRANSFERASE 36 U/L (9-52); ALBUMIN 4.5 g/dL (3.5-5.0); ALKALINE PHOSPHATASE 64 U/L (38-126); ANION GAP 9 (5-19); ASPARTATE AMINO TRANSFERASE 37 U/L (14-36); BILIRUBIN,DIRECT 0.3 mg/dL (0.0-0.4); BILIRUBIN,TOTAL 0.9 mg/dL (0.2-1.3); BLOOD UREA NITROGEN 16 mg/dL (7-20); CALCIUM 9.4 mg/dL (8.4-10.2); CARBON DIOXIDE 28 mmol/L (22-30); CHLORIDE 101 mmol/L (98-107); GLUCOSE 110 mg/dL (75-110); LIPASE 84.8 U/L (23-300); POTASSIUM 3.8 mmol/L (3.6-5.0); SODIUM 137.7 mmol/L (137-145); TOTAL PROTEIN 7.6 g/dL (6.3-8.2)
--- NOTE | 2018-03-21 07:24 | RADIOLOGY REPORT (SQ) ---
EXAM DESCRIPTION: X-ray abdomen 1 view CLINICAL DATA: 53-year-old female with abdominal pain. TECHNICAL DATA: A single AP supine x-ray of the abdomen was performed on 03/21/2018 at 7:06 AM. Comparison: Lumbar spine series performed on 07/18/2017. FINDINGS: The bowel gas pattern is nonspecific and nonobstructive. There is air and fecal residue scattered throughout the colon. There is a stable punctate calcification in the left hemiabdomen projecting over the left renal contour. No abnormal air collections are identified. No focal soft tissue abnormalities are seen. The psoas margins are preserved. There is no evidence of organomegaly. No acute osseous abnormalities are identified. IMPRESSION: 1. Nonspecific and nonobstructive bowel gas pattern. 2. Suspect punctate left renal calculus.
[2018-03-21 08:08] VITALS: BP 121/83
== END 2018-03-21 08:08 | disposition home or self-care (01) ==
LOC: ER 05:51
DX: K58.9 Irritable bowel syndrome, unspecified (principal); I10 Essential (primary) hypertension; Z85.3 Personal history of malignant neoplasm of breast; R10.84 Generalized abdominal pain; K59.00 Constipation, unspecified
CPT/HCPCS: 99284; 96374; 36415; 83690; 85025; 80053; 81001; 74018; J3490; J7030; S0028

== ENCOUNTER 2018-05-03 17:12 | Emergency (ER) | payer OTHER ==
[2018-05-03] MEDS ORDERED: ACETAMINOPHEN 325 MG TABLET PO ONE (18:15)
--- NOTE | 2018-05-03 18:16 | ER Document Report ---
HPI - HPI Time Seen by Provider: 05/03/18 18:05 Onset/Duration: Gradual Quality of pain: Achy Pain Level: 2 Context: Patient presents complaining of hot and cold chills, generalized body aches, cough and headache. Patient does report recent sick contacts at home. Associated Symptoms: Body/muscle aches, Chills, Nonproductive cough, Fever, Rhinnorhea, Sore throat. denies: Vomiting Exacerbated by: Denies Relieved by: Denies Similar symptoms previously: Yes Recently seen / treated by doctor: No - ROS ROS below otherwise negative: Yes Systems Reviewed and Negative: Yes All other systems reviewed and negative - CONSTITUTIONAL Constitutional: REPORTS: Fever, Chills - EENT EENT: REPORTS: Sore Throat, Nasal Drainage-Clear, Congestion - RESPIRATORY Respiratory: REPORTS: Coughing. DENIES: Trouble Breathing - GASTROINTESTINAL Gastrointestinal: DENIES: Nausea, Patient vomiting - REPRODUCTIVE Reproductive: DENIES: : - DERM Skin Color: Normal Skin Problems: None Past Medical History - General Information source: Patient - Social History Smoking Status: Never Smoker Frequency of alcohol use: None Drug Abuse: None Occupation: Cleaning Family History: CAD, Hypertension, Thyroid Disfunction - Past Medical History Cardiac Medical History: Reports: Hx Hypertension Renal/ Medical History: Denies: Hx Peritoneal Dialysis Malignancy Medical History: Reports: Hx Breast Cancer - 2 years ago. She had breast cancer in 2013 that relapsed in the same year. Past Surgical History: Reports: Hx Breast Surgery - LT lumpectomy, Hx Gynecologic Surgery - ablasion, Hx Tubal Ligation, Other - Lumpectomy, D&C, and endometrial ablation - Immunizations Hx Diphtheria, Pertussis, Tetanus Vaccination: Yes Vertical Provider Document - CONSTITUTIONAL Agree With Documented VS: Yes Exam Limitations: No Limitations General Appearance: WD/WN, No Apparent Distress - INFECTION CONTROL TRAVEL OUTSIDE OF THE [place] IN LAST 30 DAYS: No - HEENT HEENT: Atraumatic, Normocephalic, Pharyngeal Tenderness, Pharyngeal Erythema. negative: Pharyngeal Exudate, Tympanic Membrane Red - NECK Neck: Normal Inspection, Supple. negative: Lymphadenopathy-Left, Lymphadenopathy-Right - RESPIRATORY Respiratory: No Respiratory Distress, Chest Non-Tender, Other - dry cough - CARDIOVASCULAR Cardiovascular: Regular Rate, Regular Rhythm, No Murmur - BACK Back: Normal Inspection - MUSCULOSKELETAL/EXTREMETIES Musculoskeletal/Extremeties: MAEW, FROM - NEURO Level of Consciousness: Awake, Alert, Appropriate Motor/Sensory: No Motor Deficit - DERM Integumentary: Warm, Dry, No Rash Course - Re-evaluation Re-evalutation: 05/03/18 18:58 Respirations even and unlabored, patient nontoxic in appearance. Patient does have recent influenza exposure. Discussed with patient concerns about possible influenza at this time. Discussed efficacy and side effect profile Tamiflu. Patient declines prescription at this time. Good return precautions discussed. - Vital Signs Vital signs: Temp Pulse Resp BP Pulse Ox 98.4 F 74 18 140/92 H 97 05/03/18 17:23 05/03/18 17:23 05/03/18 17:23 05/03/18 17:23 05/03/18 17:23 - Laboratory Laboratory results interpreted by me: 05/03/18 18:58 Labs- Entire Visit 05/03/18 18:11 Group A Strep Rapid NEGATIVE - Diagnostic Test Radiology reviewed: Reports reviewed Discharge - Discharge Clinical Impression: Upper respiratory infection Qualifiers: URI type: unspecified URI Qualified Code(s): J06.9 - Acute upper respiratory infection, unspecified Condition: Stable Disposition: HOME, SELF-CARE Instructions: Acetaminophen, Upper Respiratory Illness ([facility]) Additional Instructions: Return immediately for any new or worsening symptoms Followup with your primary care provider, call tomorrow to make a followup appointment You may take Coricidin HBP and mucinex [id number] to help with congestion Prescriptions: Benzonatate [Tessalon Perle 100 mg Capsule] 100 mg PO Q8HP PRN #20 cap PRN Reason: Albuterol Sulfate [Proair Hfa Inhalation Aerosol 8.5 gm Mdi] 2 puff IH Q4 PRN #1 mdi PRN Reason: Inhaler,Assist Device,Accesory [Optichamber] 1 each MC Q4 PRN #1 each PRN Reason: Forms: Return to Work Referrals: [facility] [Primary Care Provider] - Follow up as needed
--- NOTE | 2018-05-03 18:49 | RADIOLOGY REPORT (SQ) ---
EXAM DESCRIPTION: CHEST 2 VIEWS COMPLETED DATE/TIME: 05/03/2018 6:24 pm REASON FOR STUDY: cough COMPARISON: 12/03/2017 TECHNIQUE: Frontal and lateral radiographic views of the chest acquired. NUMBER OF VIEWS: Two view. LIMITATIONS: None. FINDINGS: LUNGS AND PLEURA: No pneumothorax. No consolidation or pleural effusion. MEDIASTINUM AND HILAR STRUCTURES: Stable. HEART AND VASCULAR STRUCTURES: Stable. BONES: No acute findings. HARDWARE: Surgical clips in the left axilla. OTHER: No other significant finding. IMPRESSION: NO ACUTE FINDINGS. TECHNICAL DOCUMENTATION: JOB ID: [id number] [place]-72 2010 [employer]- All Rights Reserved Reading location - IP/workstation name: [email or web address]
[2018-05-03 19:37] VITALS: BP 142/93
== END 2018-05-03 19:40 | disposition home or self-care (01) ==
LOC: ER 17:12
DX: J06.9 Acute upper respiratory infection, unspecified (principal); M79.10 Myalgia, unspecified site; R05 Cough; R51 Headache; R50.9 Fever, unspecified; J34.89 Other specified disorders of nose and nasal sinuses; J02.9 Acute pharyngitis, unspecified; R09.89 Other specified symptoms and signs involving the circulatory and respiratory systems; R09.81 Nasal congestion; I10 Essential (primary) hypertension
CPT/HCPCS: 71046; 87070; 87880; 99283

== ENCOUNTER 2018-06-06 21:10 | Emergency (ER) | payer OTHER ==
[2018-06-06] MEDS ORDERED: ASPIRIN 81 MG TABLET, CHEWABLE PO ONE (21:49)
--- NOTE | 2018-06-06 21:52 | ER Document Report ---
ED Medical Screen (RME) - General Chief Complaint: Chest Pain Stated Complaint: CHEST PAIN Time Seen by Provider: 06/06/18 21:48 Primary Care Provider: [facility] [Primary Care Provider] - Follow up as needed Notes: 53-year-old female, chief complaint of pain in the center of her chest which is sharp, started this morning, worse with deep breaths or cough. Reports mild intermittent cough. Denies fever or chills. Denies injury. Past medical history of breast cancer on tamoxifen and hypertension. Quit smoking 18 years ago. TRAVEL OUTSIDE OF THE [place] IN LAST 30 DAYS: No - Related Data Allergies/Adverse Reactions: No Known Allergies Allergy (Verified 05/03/18 17:14) Past Medical History - Social History Chew tobacco use (# tins/day): No Frequency of alcohol use: None Drug Abuse: None - Past Medical History Cardiac Medical History: Reports: Hx Hypertension Renal/ Medical History: Denies: Hx Peritoneal Dialysis Malignancy Medical History: Reports: Hx Breast Cancer - 2 years ago. She had breast cancer in 2013 that relapsed in the same year. Past Surgical History: Reports: Hx Breast Surgery - LT lumpectomy, Hx Gynecologic Surgery - ablasion, Hx Tubal Ligation, Other - Lumpectomy, D&C, and endometrial ablation - Immunizations Hx Diphtheria, Pertussis, Tetanus Vaccination: Yes History of Influenza Vaccine for 11/2016 - 04/2017 Season: No Physical Exam - Vital signs Vitals: Temp Pulse Resp BP Pulse Ox 98.0 F 65 16 158/101 H 98 06/06/18 21:27 06/06/18 21:27 06/06/18 21:27 06/06/18 21:27 06/06/18 21:27 - Respiratory Respiratory status: No respiratory distress Chest status: Pain with deep breathing Breath sounds: No: Decreased air movement, Wheezing - Cardiovascular Rhythm: Regular. No: Tachycardia Heart sounds: Normal auscultation, S1 appreciated, S2 appreciated Course - Re-evaluation Re-evalutation: On evaluation patient appears to have pleuritic pain. No distress. Workup pending. I have greeted and performed a rapid initial assessment of this patient. A comprehensive ED assessment and evaluation of the patient, analysis of test results and completion of the medical decision making process will be conducted by additional ED providers. - Vital Signs Vital signs: Temp Pulse Resp BP Pulse Ox 98.0 F 65 16 158/101 H 98 06/06/18 21:27 06/06/18 21:27 06/06/18 21:27 06/06/18 21:27 06/06/18 21:27 Doctor's Discharge - Discharge Referrals: [facility] [Primary Care Provider] - Follow up as needed
--- NOTE | 2018-06-06 22:38 | RADIOLOGY REPORT (SQ) ---
EXAM DESCRIPTION: XR CHEST 1 VIEW COMPLETED DATE/TME: 06/06/2018 21:49 CLINICAL HISTORY: 53 years, Female, chest pain Findings: The heart is not enlarged. Lungs are clear. No consolidation or pleural effusion. No pulmonary edema or pneumothorax. IMPRESSION: No acute disease.
[2018-06-06 22:59] LABS: ABSOLUTE EOSINOPHILS # (AUTO) 0.3 10^3/uL (0.0-0.6); ABSOLUTE LYMPHOCYTES (AUTO) 2.1 10^3/uL (0.5-4.7); ABSOLUTE MONOCYTES (AUTO) 0.5 10^3/uL (0.1-1.4); ABSOLUTE NEUT (AUTO) 4.2 10^3/uL (1.7-8.2); BASOPHILS % (AUTO) 0.7 % (0-2); EOSINOPHILS % (AUTO) 4.4 % (0-6); HEMATOCRIT 40.1 % (36.0-47.0); HEMOGLOBIN 13.8 g/dL (12.0-15.5); LYMPHOCYTES % (AUTO) 29.5 % (13-45); MEAN CORPUSCULAR HEMOGLOBIN 29.1 pg (27.0-33.4); MEAN CORPUSCULAR HGB CONC 34.4 g/dL (32.0-36.0); MEAN CORPUSCULAR VOLUME 85 fl (80-97); MONOCYTES % (AUTO) 6.8 % (3-13); PLATELET COUNT 211 10^3/uL (150-450); RED BLOOD COUNT 4.73 10^6/uL (3.72-5.28); RED CELL DISTRIBUTION WIDTH 14.9 % (11.5-14.0); SEGMENTED NEUTROPHILS % (AUTO) 58.6 % (42-78); TOTAL CELLS COUNTED % (AUTO) 100 %; WHITE BLOOD COUNT 7.1 10^3/uL (4.0-10.5)
[2018-06-06 23:14] LABS: ALANINE AMINOTRANSFERASE 32 U/L (9-52); ALKALINE PHOSPHATASE 87 U/L (38-126); ANION GAP 9 (5-19); ASPARTATE AMINO TRANSFERASE 28 U/L (14-36); BILIRUBIN,DIRECT 0.2 mg/dL (0.0-0.4); BILIRUBIN,TOTAL 0.4 mg/dL (0.2-1.3); BLOOD UREA NITROGEN 15 mg/dL (7-20); CALCIUM 9.6 mg/dL (8.4-10.2); CARBON DIOXIDE 25 mmol/L (22-30); CHLORIDE 107 mmol/L (98-107); GLUCOSE 95 mg/dL (75-110); POTASSIUM 3.9 mmol/L (3.6-5.0); TOTAL PROTEIN 7.3 g/dL (6.3-8.2)
--- NOTE | 2018-06-07 00:02 | ER Document Report ---
ED General - General Chief Complaint: Chest Pain Stated Complaint: CHEST PAIN Time Seen by Provider: 06/06/18 21:48 Primary Care Provider: [facility] [NO LOCAL MD] - Follow up as needed Notes: Patient is a 53-year-old female that presents to the emergency department for chief complaint of chest pain. Patient reports that this pain started this morning, and seem to be constant but worse with taking a deep breath, she feels along the costosternal junction bilaterally. She states that it feels a little bit worse in the left compared to the right. She denies prior history of CAD, PE. But does states she has a history of breast cancer is currently on tamoxifen, its in remission. She denies any lightheadedness, dizziness, fevers, chills, palpitations, shortness of breath or difficulty breathing. She only states that she feels it is hard to catch her breath because of the pain. She currently rates the pain as a 4 out of 10 describes it as a sharp and aching sensation. Past Medical History: Hypertension, history of breast cancer Past Surgical History: Lumpectomy Social History: Denies tobacco, alcohol or drug use. Family History: Reviewed and noncontributory for presenting illness Allergies: Reviewed, see documented allergy list. REVIEW OF SYSTEMS: Other than noted above, the 12 point review of systems was reviewed with the patient and were negative, all pertinent findings are included in the HPI. PHYSICAL EXAMINATION: Vital signs reviewed, nursing noted reviewed. GENERAL: Well-appearing, well-nourished and in no acute distress. HEAD: Atraumatic, normocephalic. EYES: Eyes appear normal, extraocular movements intact, sclera anicteric, conjunctiva are normal. ENT: nares patent, oropharynx clear without exudates. Moist mucous membranes. NECK: Normal range of motion, supple without lymphadenopathy LUNGS: Breath sounds clear to auscultation bilaterally and equal. No wheezes rales or rhonchi. There is reproducible tenderness on the costosternal junction bilaterally. HEART: Regular rate and rhythm without murmurs ABDOMEN: Soft, nontender, normoactive bowel sounds. No rebound, guarding, or rigidity. No masses appreciated. EXTREMITIES: Nontender, good range of motion, no pitting or edema. NEUROLOGICAL: No focal neurological deficits. Moves all extremities spontaneously Motor and sensory grossly intact on exam. PSYCH: Normal mood, normal affect. SKIN: Warm, Dry, normal turgor, no rashes or lesions noted on exposed skin TRAVEL OUTSIDE OF THE [place] IN LAST 30 DAYS: No - Related Data Allergies/Adverse Reactions: No Known Allergies Allergy (Verified 05/03/18 17:14) Past Medical History - Social History Smoking Status: Never Smoker Chew tobacco use (# tins/day): No Frequency of alcohol use: None Drug Abuse: None Family History: CAD, Hypertension, Thyroid Disfunction Patient has suicidal ideation: No Patient has homicidal ideation: No - Past Medical History Cardiac Medical History: Reports: Hx Hypertension Renal/ Medical History: Denies: Hx Peritoneal Dialysis Malignancy Medical History: Reports: Hx Breast Cancer - 2 years ago. She had breast cancer in 2013 that relapsed in the same year. Past Surgical History: Reports: Hx Breast Surgery - LT lumpectomy, Hx Gynecologic Surgery - ablasion, Hx Tubal Ligation, Other - Lumpectomy, D&C, and endometrial ablation - Immunizations Hx Diphtheria, Pertussis, Tetanus Vaccination: Yes Physical Exam - Vital signs Vitals: Temp Pulse Resp BP Pulse Ox 98.0 F 65 16 158/101 H 98 06/06/18 21:27 06/06/18 21:27 06/06/18 21:27 06/06/18 21:27 06/06/18 21:27 Course - Re-evaluation Re-evalutation: Presentation of chest pain in an otherwise well appearing patient. Low clinical suspicion for ACS given clinical history, exam, EKG without ST elevations or depressions, and negative initial troponin. HEART score less than or equal to 3. PE also seems unlikely given clinical history, absence of tachycardia or dyspnea. Patient is PERC criteria negative. CXR without evidence of pneumothorax or pneumonia. No widened mediastinum. Aortic dissection also seems unlikely given history, symmetric pulses, CXR, and vitals. HEART Score: History 0 ECG 0 Age 1 Risk Factors 1 Troponin 0 Total: 2 Chest pain in a patient without evidence of cardiac or other serious etiology on workup today. I discussed with patient that, based on their age, risk factors and emergency department testing today, the likelihood that their symptoms are related to a heart attack is very low (estimated risk of heart attack or over the next 30 days of less than 1%). The patient demonstrates decision making capacity and has verbalized an understanding of these risks to me. Based on this, the patient has chosen to follow-up as an outpatient. Usual chest pain return precautions reviewed. The patient states understanding and agreement with this plan. D-dimer was also ordered, and was negative, given patient history of breast cancer, therefore likelihood of PE is exceedingly low at this time, she was PERC negative, with a negative d-dimer. Patient was treated with Toradol in the ED. Evaluation was most consistent with chest wall pain, will advised patient follow-up with cardiology as well, will advise naproxen twice daily for 7 days. Results were discussed with the patient at this point, after careful consideration I feel that that patient can be discharged from the emergency department, the patient was educated treatments and reasons to return to the emergency department based on their presumed diagnosis as noted above, they were advised to followup with a primary care physician in 2-3 days. Patient was agreeable to plan of care. *Note is created using voice recognition software and may contain spelling, syntax or grammatical errors. Laboratory 06/06/18 06/06/18 06/06/18 22:48 22:48 22:48 WBC 7.1 RBC 4.73 Hgb 13.8 Hct 40.1 MCV 85 MCH 29.1 MCHC 34.4 RDW 14.9 H Plt Count 211 Seg Neutrophils % 58.6 Lymphocytes % 29.5 Monocytes % 6.8 Eosinophils % 4.4 Basophils % 0.7 Absolute Neutrophils 4.2 Absolute Lymphocytes 2.1 Absolute Monocytes 0.5 Absolute Eosinophils 0.3 Absolute Basophils 0.0 D-Dimer Sodium 141.0 Potassium 3.9 Chloride 107 Carbon Dioxide 25 Anion Gap 9 BUN 15 Creatinine 1.01 Est GFR ( Amer) > 60 Est GFR (Non-Af Amer) 57 L Glucose 95 Calcium 9.6 Total Bilirubin 0.4 Direct Bilirubin 0.2 Neonat Total Bilirubin Not Reportable Neonat Direct Bilirubin Not Reportable Neonat Indirect Bili Not Reportable AST 28 ALT 32 Alkaline Phosphatase 87 Troponin I 0.022 Total Protein 7.3 Albumin 4.0 06/06/18 22:48 WBC RBC Hgb Hct MCV MCH MCHC RDW Plt Count Seg Neutrophils % Lymphocytes % Monocytes % Eosinophils % Basophils % Absolute Neutrophils Absolute Lymphocytes Absolute Monocytes Absolute Eosinophils Absolute Basophils D-Dimer 0.40 Sodium Potassium Chloride Carbon Dioxide Anion Gap BUN Creatinine Est GFR ( Amer) Est GFR (Non-Af Amer) Glucose Calcium Total Bilirubin Direct Bilirubin Neonat Total Bilirubin Neonat Direct Bilirubin Neonat Indirect Bili AST ALT Alkaline Phosphatase Troponin I Total Protein Albumin Chest X-Ray 06/06/18 21:49 IMPRESSION: No acute disease. - Vital Signs Vital signs: Temp Pulse Resp BP Pulse Ox 98.0 F 65 19 121/75 96 06/06/18 21:27 06/06/18 21:27 06/07/18 01:01 06/07/18 01:01 06/07/18 01:01 - Laboratory Result Diagrams: 06/06/18 22:48 06/06/18 22:48 Laboratory results interpreted by me: 06/06/18 06/06/18 22:48 22:48 RDW 14.9 H Est GFR (Non-Af Amer) 57 L - EKG Interpretation by Me Additional EKG results interpreted by me: EKG demonstrates sinus rhythm with a ventricular rate of 61 bpm, left axis deviation, QTC 472 ms, no evidence of acute ischemia in this EKG, this is compared with the prior EKG from 12/03/2017, without significant change. Discharge - Discharge Clinical Impression: Chest pain Qualifiers: Chest pain type: unspecified Qualified Code(s): R07.9 - Chest pain, unspecified Condition: Stable Disposition: HOME, SELF-CARE Instructions: Chest Pain of Unclear Cause ([facility]) Additional Instructions: Please return to the emergency department if you have any worsening, or concern of your symptoms. Please return to the emergency department if you develop worsening or persistent chest pain, difficulty breathing, severe abdominal pain, or ongoing vomiting. Please follow-up with your primary care physician in 2-3 days and any other recommended physicians. If prescribed, take all medications as directed. If you have any questions or concerns do not hesitate to return the emergency department for evaluation. Prescriptions: Naproxen 500 mg PO BID #30 tablet Referrals: [facility] [NO LOCAL MD] - Follow up in 3-5 days LOKI US MD [ACTIVE STAFF] - Follow up in 3-5 days (cardiology )
[2018-06-07] MEDS ORDERED: KETOROLAC TROMETHAMINE 60 MG/2 ML SDV IM ONE (00:37)
[2018-06-07 02:33] VITALS: BP 131/88
--- NOTE | 2018-06-07 09:47 | EKG REPORT ---
SEVERITY:- ABNORMAL ECG - SINUS RHYTHM LEFT VENTRICULAR HYPERTROPHY : Confirmed by: Annamaria Salinas 07-Jun-2018 09:46:30
== END 2018-06-07 02:41 | disposition home or self-care (01) ==
LOC: ER 21:10
DX: R07.9 Chest pain, unspecified (principal); Z85.3 Personal history of malignant neoplasm of breast; Z79.899 Other long term (current) drug therapy; I10 Essential (primary) hypertension
CPT/HCPCS: 93005; 99285; 96372; 36415; 85025; 80053; 84484; 85379; 71045; 93010; J1885

== ENCOUNTER → 2018-08-06 | Outpatient (CLI) | payer OTHER ==
--- NOTE | 2018-08-13 13:04 | WOMENS IMAGING REPORT ---
EXAM DESCRIPTION: BILAT DIAGNOSTIC MAMMO W/CAD COMPLETED DATE/TIME: 08/06/2018 1:29 pm REASON FOR STUDY: N64.4 MASTODYNIA N64.4 MASTODYNIA COMPARISON: Bilateral diagnostic mammogram 09/22/2015 EXAM PARAMETERS: Standard craniocaudal and mediolateral oblique views of each breast recorded using digital acquisition. Additional bilateral breast 90 mediolateral view and left breast cone compression magnification view s of the lumpectomy site left breast in the CC and MLO orientations. Read with the assistance of CAD: .[facility] - R2 Jig Worker Version 9.2 LIMITATIONS: None. FINDINGS: RIGHT BREAST MASSES: No suspicious masses. CALCIFICATIONS: No new or suspicious calcifications. Benign scattered breast parenchymal and arteria l vascular calcifications ARCHITECTURAL DISTORTION: None. DEVELOPING DENSITY: None. ASYMMETRY: None noted. OTHER: No other significant findings. LEFT BREAST MASSES: No suspicious masses. CALCIFICATIONS: No new or suspicious calcifications. Benign scattered breast parenchymal and arteria l vascular calcifications. ARCHITECTURAL DISTORTION: There is a focus of architectural distortion in the left breast upper outer quadrant 10 cm from the nipple with adjacent surgical clips from lumpectomy. A 2nd, smaller focus o f architectural distortion in the upper outer quadrant close to the nipple with surgical clips is pre sent from lumpectomy. These findings are stable compared to 09/22/2015. DEVELOPING DENSITY: None. ASYMMETRY: None. OTHER: Surgical clip in the far right upper outer quadrant. IMPRESSION: No mammographic evidence for malignancy bilaterally. Post therapeutic changes bilateral ly BREAST DENSITY: c. The breasts are heterogeneously dense, which may obscure small masses. BIRAD: ASSESSMENT: 2 Benign findings. RECOMMENDATION: RECOMMENDED FOLLOW UP: Please continue yearly bilateral screening mammography/ tomos ynthesis in July 2019 SPECIFIC INTERVENTION/IMAGING/CONSULTATION RECOMMENDED:No additional intervention/ imaging/consultati on needed at this time. COMMUNICATION:Patient notified by letter COMMENT: The patient has been notified of the results by letter per MQSA requirements. Additional no tification policies are in place for contacting patient with suspicious or incomplete findings. Quality ID #[id number]: The [employer] recommends an annual screening mammogram for women aged 40 years or over. This facility utilizes a reminder system to ensure that all patients receive reminder letters, and/or direct phone calls for appointments. This includes reminders for routine scr eening mammograms, diagnostic mammograms, or other Breast Imaging Interventions when appropriate. Th is patient will be placed in the appropriate reminder system. TECHNICAL DOCUMENTATION: FINDING NUMBER: (1) ASSESSMENT: (1) JOB ID: [id number] [employer]- All Rights Reserved Reading location - IP/workstation name: [email or web address]
== END ==
LOC: WI 12:56
DX: N64.4 Mastodynia (principal); Z85.3 Personal history of malignant neoplasm of breast
CPT/HCPCS: 77066

== ENCOUNTER 2019-05-26 10:09 | Emergency (ER) | payer SELFPAY ==
--- NOTE | 2019-05-26 10:23 | ER Document Report ---
HPI - HPI Time Seen by Provider: 05/26/19 10:18 Context: Patient is a 54-year-old female with a history of hypertension, breast cancer, and seasonal allergies who presents the emergency department with right foot pain. Patient states that about 2 weeks ago she jumped up in her closet and fell on her right foot. She is able to walk on it, but it continues to hurt. She has been taking ibuprofen for the swelling. She has not seen a primary care provider to have this checked. - CONSTITUTIONAL Constitutional: DENIES: Fever, Chills - EENT EENT: DENIES: Sore Throat, Ear Pain - REPRODUCTIVE Reproductive: DENIES: : - MUSCULOSKELETAL Musculoskeletal: REPORTS: Extremity pain - left lateral foot, Swelling - left foot. DENIES: Back Pain, Neck Pain - DERM Skin Color: Normal Skin Problems: None Past Medical History - General Information source: Patient - Social History Smoking Status: Unknown if Ever Smoked Family History: CAD, Hypertension, Thyroid Disfunction - Past Medical History Cardiac Medical History: Reports: Hx Hypertension Renal/ Medical History: Denies: Hx Peritoneal Dialysis Malignancy Medical History: Reports: Hx Breast Cancer - 2 years ago. She had breast cancer in 2013 that relapsed in the same year. Past Surgical History: Reports: Hx Breast Surgery - LT lumpectomy, Hx Gynecologic Surgery - ablasion, Hx Tubal Ligation, Other - Lumpectomy, D&C, and endometrial ablation - Immunizations Hx Diphtheria, Pertussis, Tetanus Vaccination: Yes Vertical Provider Document - CONSTITUTIONAL Agree With Documented VS: Yes Exam Limitations: No Limitations General Appearance: No Apparent Distress - INFECTION CONTROL TRAVEL OUTSIDE OF THE [place] IN LAST 30 DAYS: No - HEENT HEENT: Atraumatic, Normocephalic, PERRLA - NECK Neck: Normal Inspection - RESPIRATORY Respiratory: No Respiratory Distress - CARDIOVASCULAR Pulses: Normal: Posterior tibial, Dorsalis pedis - MUSCULOSKELETAL/EXTREMETIES Musculoskeletal/Extremeties: FROM, Tender - Right lateral foot at 5th metatarsal - NEURO Level of Consciousness: Awake, Alert, Appropriate Motor/Sensory: No Motor Deficit, No Sensory Deficit - DERM Integumentary: Warm, Dry, No Rash Course - Re-evaluation Re-evalutation: 05/26/19 Patient has 1/5 metatarsal fracture. She will be placed in a splint and crutches. See procedure note. Capillary refill less than 3 seconds. Dorsalis pedis and posterior tibial pulses 2+. We will give the patient pain medication. She will follow-up with orthopedics. She is in agreement with this plan. Follow-up precautions were given. Verbal discharge instructions were given to the patient. They verbalized understanding. They are stable for discharge. Procedures - Immobilization Left Foot Pre-Proc Neuro Vasc Exam: Normal Immobilizer type: Crutches, Short Leg Posterior Performed by: PCT Post-Proc Neuro Vasc Exam: Normal, Unchanged from pre-exam Discharge - Discharge Clinical Impression: Fracture of fifth metatarsal bone Qualifiers: Encounter type: initial encounter Fracture type: closed Fracture alignment: displaced Laterality: right Qualified Code(s): S92.351A - Displaced fracture of fifth metatarsal bone, right foot, initial encounter for closed fracture Condition: Stable Disposition: HOME, SELF-CARE Instructions: Use of Crutches ([facility]), Splint Precautions ([facility]), Temporary Splint ([facility]) Additional Instructions: You are seen today in the emergency department for right foot pain. You have a fracture in your foot. Continue taking ibuprofen for pain, try to cut back to 400 mg instead of 800 mg. Only take the Manito if you absolutely need it. Please use the crutches and wear your splint until you are cleared by orthopedics. Prescriptions: Hydrocodone/Acetaminophen [Manito 5-325 mg Tablet] 1 tab PO Q6HP PRN #14 tablet PRN Reason: Referrals: [facility] [Primary Care Provider] - Follow up as needed NICHELLE BUCKLEY JR, DO [ACTIVE PROVISIONAL STAFF] - Follow up in 3-5 days ANISHA NUNN MD [ACTIVE PROVISIONAL STAFF] - Follow up in 3-5 days ERUM DU MD [ACTIVE STAFF] - Follow up in 3-5 days
--- NOTE | 2019-05-26 11:14 | RADIOLOGY REPORT (SQ) ---
EXAM DESCRIPTION: FOOT RIGHT COMPLETE IMAGES COMPLETED DATE/TIME: 05/26/2019 11:04 am REASON FOR STUDY: right foot pain COMPARISON: None. NUMBER OF VIEWS: Three views. TECHNIQUE: AP, lateral and oblique radiographic images acquired of the right foot. LIMITATIONS: None. FINDINGS: MINERALIZATION: Normal. BONES: Spiral minimally displaced fracture distal 5th metatarsal shaft. JOINTS: No effusions. SOFT TISSUES: No soft tissue swelling. No foreign body. OTHER: No other significant finding. IMPRESSION: Fracture 5th metatarsal. TECHNICAL DOCUMENTATION: JOB ID: [id number] 2010 [employer]- All Rights Reserved Reading location - IP/workstation name: [email or web address]
[2019-05-26 12:40] VITALS: BP 150/104
== END 2019-05-26 12:42 | disposition home or self-care (01) ==
LOC: ER 10:09
DX: S92.351A Displaced fracture of fifth metatarsal bone, right foot, initial encounter for closed fracture (principal); M79.671 Pain in right foot; M79.89 Other specified soft tissue disorders; W17.89XA Other fall from one level to another, initial encounter; I10 Essential (primary) hypertension; Z85.3 Personal history of malignant neoplasm of breast; Z98.51 Tubal ligation status
CPT/HCPCS: 99283

== ENCOUNTER 2019-05-31 05:09 | Emergency (ER) | payer SELFPAY ==
[2019-05-31 06:05] LABS: ABSOLUTE BASOPHILS # (AUTO) 0.1 10^3/uL (0.0-0.2); ABSOLUTE EOSINOPHILS # (AUTO) 0.2 10^3/uL (0.0-0.6); ABSOLUTE MONOCYTES (AUTO) 0.5 10^3/uL (0.1-1.4); TOTAL CELLS COUNTED % (AUTO) 100 %
[2019-05-31 06:12] LABS: ABSOLUTE LYMPHOCYTES (AUTO) 1.5 10^3/uL (0.5-4.7); ABSOLUTE NEUT (AUTO) 5.1 10^3/uL (1.7-8.2); BASOPHILS % (AUTO) 0.9 % (0-2); EOSINOPHILS % (AUTO) 2.2 % (0-6); HEMATOCRIT 39.2 % (36.0-47.0); HEMOGLOBIN 13.8 g/dL (12.0-15.5); LYMPHOCYTES % (AUTO) 20.9 % (13-45); MEAN CORPUSCULAR HGB CONC 35.1 g/dL (32.0-36.0); MEAN CORPUSCULAR VOLUME 83 fl (80-97); MONOCYTES % (AUTO) 6.6 % (3-13); PLATELET COUNT 234 10^3/uL (150-450); RED BLOOD COUNT 4.75 10^6/uL (3.72-5.28); RED CELL DISTRIBUTION WIDTH 15.2 % (11.5-14.0); SEGMENTED NEUTROPHILS % (AUTO) 69.4 % (42-78); WHITE BLOOD COUNT 7.4 10^3/uL (4.0-10.5)
[2019-05-31 06:27] LABS: ALBUMIN 4.1 g/dL (3.5-5.0); ALKALINE PHOSPHATASE 66 U/L (38-126); ANION GAP 7 (5-19); ASPARTATE AMINO TRANSFERASE 26 U/L (14-36); BILIRUBIN,DIRECT 0.1 mg/dL (0.0-0.4); BILIRUBIN,TOTAL 0.5 mg/dL (0.2-1.3); BLOOD UREA NITROGEN 11 mg/dL (7-20); CALCIUM 9.9 mg/dL (8.4-10.2); CARBON DIOXIDE 24 mmol/L (22-30); CHLORIDE 105 mmol/L (98-107); GLUCOSE 113 mg/dL (75-110); POTASSIUM 4.2 mmol/L (3.6-5.0); TOTAL PROTEIN 7.4 g/dL (6.3-8.2)
[2019-05-31] MEDS ORDERED: LIDOCAINE 2% VISCOUS SOLN 15 ML UDCUP PO ONE (07:09)
[2019-05-31] MEDS ORDERED: MAG HYDROX/AL HYDROX/SIMETH SUSP 30 ML UDCUP PO ONE (07:09)
--- NOTE | 2019-05-31 07:48 | RADIOLOGY REPORT (SQ) ---
CLINICAL HISTORY: mid abd pain, probable covid + COMPARISON: None. TECHNIQUE: XR ABDOMEN SUPINE AND ERECT WITH CHEST (ABD ACUTE SERIES) 05/31/2019 7:11 AM CDT FINDINGS: There is moderate amount of stool in the proximal colon. There are no abnormal radiopaque foreign bodies or abnormal calcifications. Osseous structures are grossly unremarkable. The heart is normal in size. Lungs are clear. There are surgical clips in the left axilla. IMPRESSION: Constipation. No focal pneumonia.
[2019-05-31 08:10] VITALS: BP 144/104
--- NOTE | 2019-05-31 10:54 | ER Document Report ---
Entered by UDAY FLORES SCRIBE 05/31/19 0711 Acting as scribe for:MAYRA PARSONS MD ED GI/ - General Chief Complaint: Abdominal Pain Stated Complaint: ABDOMINAL PAIN Time Seen by Provider: 05/31/19 06:43 Mode of Arrival: Ambulatory Information source: Patient Notes: This 54-year-old female patient presents to the emergency department today with complaints of upper abdominal pain which began yesterday around 6 PM. Patient states shortly after the abdominal pain began she had a "very big bowel movement" but this did not change her abdominal pain. Patient also complains of a few episodes of vomiting. Patient states that she has very bad GERD and her symptoms today feel similar to GERD flares. Patient describes the pain as sharp and stabbing, stating that it radiates towards her lower back. Patient states she has had a cough with minimal clear sputum. Patient denies any fevers. Of note, this patient lives with her daughter who was tested for COVID-19 on 05/26, the results came back yesterday (05/29) as positive for COVID-19. TRAVEL OUTSIDE OF THE [place] IN LAST 30 DAYS: No - Related Data Allergies/Adverse Reactions: hydromorphone [From Dilaudid] Allergy (Intermediate, Verified 05/26/19 10:18) Itching Past Medical History - General Information source: Patient - Social History Smoking Status: Never Smoker Cigarette use (# per day): No Frequency of alcohol use: None Drug Abuse: None Lives with: Family Family History: CAD, Hypertension, Thyroid Disfunction Patient has suicidal ideation: No Patient has homicidal ideation: No - Past Medical History Cardiac Medical History: Reports: Hx Hypertension Malignancy Medical History: Reports: Hx Breast Cancer - 2 years ago. She had breast cancer in 2014 that relapsed in the same year. Past Surgical History: Reports: Hx Breast Surgery - LT lumpectomy, Hx Gynecologic Surgery - ablasion, Hx Tubal Ligation, Other - Lumpectomy, D&C, and endometrial ablation - Immunizations Hx Diphtheria, Pertussis, Tetanus Vaccination: Yes Review of Systems - Review of Systems Constitutional: denies: Fever EENT: No symptoms reported Cardiovascular: No symptoms reported Respiratory: See HPI, Cough Gastrointestinal: See HPI, Abdominal pain, Vomiting, Blood in vomit Genitourinary: No symptoms reported Female Genitourinary: No symptoms reported Musculoskeletal: No symptoms reported Skin: No symptoms reported Hematologic/Lymphatic: No symptoms reported Neurological/Psychological: No symptoms reported -: Yes All other systems reviewed and negative Physical Exam - Vital signs Vitals: Resp Pulse Ox 7 L 93 05/31/19 05:13 05/31/19 05:13 - Notes Notes: Physical Exam: General: Alert, appears well. HEENT: Normocephalic. Atraumatic. PERRL. Extraocular movements intact. Oropharynx clear. Neck: Supple. Non-tender. Respiratory: No respiratory distress. Clear and equal breath sounds bilaterally. Cardiovascular: Regular rate and rhythm. Abdominal: Obese. Epigastric tenderness with palpation without guarding or rebound. Back: No gross abnormalities. Extremities: Moves all four extremities. Upper extremities: Normal inspection. Normal ROM. Lower extremities: Normal inspection. No edema. Normal ROM. Neurological: Normal cognition. AAOx4. Normal speech. Psychological: Normal affect. Normal Mood. Skin: Warm. Dry. Normal color. Course - Re-evaluation Re-evalutation: 05/31/19 08:11 Patient reports that the epigastric abdominal pain is much improved after GI cocktail. She can still feel a little discomfort, but again it is improved following the GI cocktail. - Vital Signs Vital signs: Temp Pulse Resp BP Pulse Ox 97.7 F 17 144/104 H 96 05/31/19 08:31 05/31/19 08:01 05/31/19 08:00 05/31/19 08:01 - Laboratory Result Diagrams: 05/31/19 05:40 05/31/19 05:40 Laboratory results interpreted by me: 05/31/19 05/31/19 05:40 05:40 RDW 15.2 H Sodium 136.0 L Glucose 113 H - Diagnostic Test Radiology reviewed: Image reviewed, Reports reviewed - Acute abdominal series shows moderate amount of stool in the proximal colon. No other abnormalities. No focal infiltrates in the chest. Discharge - Discharge Clinical Impression: Close exposure to COVID-19 virus GERD (gastroesophageal reflux disease) Qualifiers: Esophagitis presence: esophagitis presence not specified Qualified Code(s): K21.9 - Gastro-esophageal reflux disease without esophagitis Constipation Qualifiers: Constipation type: unspecified constipation type Qualified Code(s): K59.00 - Constipation, unspecified Condition: Stable Disposition: HOME, SELF-CARE Additional Instructions: Reflux Disease (GERD): Gastro-Esophageal Reflux Disease (GERD) is caused by stomach acid refluxing back up into the esophagus. The valve at the end of the esophagus may be weak. This is common in persons with a hiatal hernia. GERD symptoms can include indigestion, chest pain, heartburn, or food "sticking." Certain foods, alcohol, and aspirin can make GERD worse. Treatment depends on the severity. Usually, antacids or acid-suppressing medicines are used. When the esophagus is acutely inflamed, the physician will often prescribe membrane-protective drugs such as Carafate. Some patients benefit from medication such as Reglan that tightens the valve at the top of the stomach. Avoid those foods that bring on your symptoms. For many people, these foods are coffee, chocolate, onions, garlic, and carbonated drinks. Don't use alcohol, aspirin, caffeine, or tobacco. Don't eat late at night -- within 4 hours of bedtime. Don't over-eat. If necessary, elevate the head of your bed about 4 inches so that stomach acid will not roll up into your esophagus. Call the doctor if you develop severe chest pain, inability to swallow fluids, fever, or worsening symptoms. Your evaluation today suggest that you have gastroesophageal reflux causing most of your abdominal discomfort. The x-rays also show constipation in your proximal colon. You report having had a large bowel movement which is probably why the distal colon does not look full of stool. You do have a history of living with someone known to have the Covid-19 virus. You are not showing symptoms of infection at this point, however you should assume that you do have the virus at this time and self quarantine at home. Start taking the MiraLAX you have at home every day and drink plenty of fluids. Eat a bland diet and avoid foods and liquids known to worsen stomach acid. Do not eat late in the evening, or lay down with a full stomach, as this increases the reflux. Start taking Prilosec OTC once daily for the next week. Take antacids between meals and at bedtime. Consider elevating the head of the bed. Follow-up with your primary care provider if not improving. RETURN TO THE EMERGENCY ROOM IF ANY NEW OR WORSENING SYMPTOMS. I personally performed the services described in the documentation, reviewed and edited the documentation which was dictated to the scribe in my presence, and it accurately records my words and actions.
--- NOTE | 2019-06-01 10:48 | EKG REPORT ---
SEVERITY:- ABNORMAL ECG - SINUS RHYTHM PROBABLE LEFT ATRIAL ABNORMALITY LEFT VENTRICULAR HYPERTROPHY : Confirmed by: Annamaria Salinas 01-Jun-2019 10:48:16
== END 2019-05-31 09:05 | disposition home or self-care (01) ==
LOC: ER 05:09
DX: K21.9 Gastro-esophageal reflux disease without esophagitis (principal); K59.00 Constipation, unspecified; Z20.828 Contact with and (suspected) exposure to other viral communicable diseases; K92.0 Hematemesis; R10.9 Unspecified abdominal pain; R10.10 Upper abdominal pain, unspecified; R05 Cough; Z88.8 Allergy status to other drugs, medicaments and biological substances; I10 Essential (primary) hypertension
CPT/HCPCS: 93005; 99284; 36415; 83690; 85025; 80053; 84484; 74022; 93010; J3490